=== PATIENT | male | born 1955 | race Caucasian/White ===

== ENCOUNTER → 2016-11-13 | Outpatient (CLI) | payer OTHER ==
[~2016-11-13] MED LIST: CARV3.122 PO; WLLUNK PO; [UNRECOGNIZED DRUG - OTHER] PO
--- NOTE | 2016-11-13 12:38 | DIAGNOSTIC IMAGING REPORT ---
RIGHT FOOT 3 VIEWS CLINICAL HISTORY: Right foot pain. FINDINGS: 3 weightbearing views of the right foot are obtained. No prior studies are available for comparison at the time of dictation. The skeletal structures appear osteopenic. No fracture is identified. Pes planus is noted. There is a plantar calcaneal enthesophyte. Mild degenerative spurring is seen along the dorsal aspect of the tarsal bones. Mild arthritic change is noted at the first metatarsophalangeal joint. The remaining joint spaces appear maintained. The overlying soft tissues are within normal limits. IMPRESSION: 1. No acute bony abnormality is identified in the right foot. 2. Pes planus, plantar heel spur, and mild arthritic change as above. Electronically signed by: Mark Bailey M.D. 11/13/2016 12:36 PM Dictated Date/Time: 11/13/2016 12:34 PM
--- NOTE | 2016-11-14 13:17 | CODING QUERY NO DIAGNOSIS ---
: 1955 TREATMENT RENDERED WITHOUT A DIAGNOSIS To promote full compliance with coding requirements relating to patient care, physician participation is requested in all cases of health information coder uncertainty. Please assist us with providing a diagnosis/symptom for the test(s) below: A diagnosis/symptom was not documented on your Order. A valid diagnosis/symptom is required to bill all insurances. Please remember that we are unable to code a diagnosis of rule out, probable, possible, questionable, or suspected. Tests that require a diagnosis: DOS: 11/13/16 * Foot X-Ray DIAGNOSIS: Provider Signature: Date: Thank you Noemi Muñoz Health Information Management Once completed, please kindly fax back to [phone] For questions please call [phone]
== END | disposition home or self-care (01) ==
LOC: C.RAD 10:52
PROVIDERS: ATTEND Podiatrist Foot & Ankle Surgery
DX: M72.2 Plantar fascial fibromatosis (principal); M21.41 Flat foot [pes planus] (acquired), right foot; M77.31 Calcaneal spur, right foot

== ENCOUNTER 2024-04-25 23:14 | Inpatient (IN) ==
--- OUTSIDE RECORDS SUMMARY | 2024-04-25 23:17 | External Medical Summary ---
Author Name Unknown Address Unknown Organization [id number]:LABORATORY [facility] [place] - [address] [place] [address] Laboratory Report Ordering Provider Test Date Status YONAS BERNARDO 04/06/2024 10:29:52 Final Observation Date Value Abnormality Reference (Units ) Status HbA1C 04/06/2024 10:29:52 5.3 4.0-5.6 (% ) Final The use of HbA1c to monitor glycemic status is based on normal hemoglobin and HbA composition. This test should not be used in patients with abnormal hemoglobin that affects the half life of the red blood cell or the in vivo glycation rates. Glucose, estimated average 04/06/2024 10:29:52 105 <126 (mg/dL) Final Performing Location LABORATORY [facility] - [address] [place] [address]
--- OUTSIDE RECORDS SUMMARY | 2024-04-25 23:17 | External Medical Summary ---
Author Name Unknown Address Unknown Organization [id number]:[facility] [place] [facility] [address] [facility] [place] [address] Laboratory Report Ordering Provider Test Date Status YONAS BERNARDO 04/06/2024 10:29:52 Final Observation Date Value Abnormality Reference (Units ) Status Triglyceride 04/06/2024 10:29:52 70 <=174 ( mg/dL) Final Triglyceride Reference Range s (mg/dL):
<150 Acceptable
150-174 Borderline high
175-499 High
>=500 Very high Cholesterol 04/06/2024 10:29:52 161 <200 (mg /dL) Final Total Cholesterol Reference Ranges (mg/dL):
<200 Desirable
200-239 Borderline high
>=240 High HDL 04/06/2024 10:29:52 45 >39 (mg/dL ) Final HDL Cholesterol Reference Ra nges (mg/dL):
>=60 High (Desirable)
<50 Low (Undesirable) For Females
<40 Low (Undesirable) For Males NON-HDL CHOLESTEROL 04/06/2024 10:29:52 116 <=159 (mg/dL) Final Non-HDL Cholesterol Referenc e Range (mg/dL):
<100 Target level for high risk ASCVD patient
<130 Optimal for general population
130-159 Near optimal for general population
160-189 Borderline High
190-219 High
>=220 Very High LDL, (calculated) 04/06/2024 10:29:52 102 <= 129 (mg/dL) Final LDL Cholesterol Reference Ra nges (mg/dL):
<70 Target level for high risk ASCVD patient
<100 Optimal for general population
100-129 Near optimal for general population
130-159 Borderline high
160-189 High
>=190 Very high Performing Location LABORATORY [facility] [place] - [address] [facility] [address]
--- OUTSIDE RECORDS SUMMARY | 2024-04-25 23:17 | External Medical Summary | Summary of Care ---
Author Name Unknown Organization [facility] Address [address] [facility] [address] Phone [phone] Care Team Providers Care Silver Cleaner Name Role Phone Unavailable Primary Care Provider Unavailabl e Encounter Details Date Type Department Care Team (Late st Contact Info) Description 03/16/2024 Orders Only PATIENT PORTAL DO NOT DELETE THIS DEPT USED BY [place] [id number] Allergies No known active allergiesdocumented as of this encounter (statuses as of 03/16/2024) Medications Medication Sig Dispensed Refills Start Date End Date Status Aspirin 81 MG Tablet Take 1 Tablet by mouth in the morning. 34 Tab 5 04/26/2015 Active Divalproex Sodium ER 500 MG Oral Tablet Extended Release 24 Hour (Depakote ER) Take 1 Tablet by mouth in the morning and 1 Tablet before bedtime. 06/26/2021 Active buPROPion HCl ER (SR) 100 MG Oral Tablet Extended Release 12 Hour (Wellbutrin SR) Take 1 Tablet by mouth in the morning and 1 Tablet before bedtime. 06/26/2021 Active Emergen-C Electro Mix Oral Packet Take by mouth 1 Package daily . Active Triamcinolone Acetonide 0.025 % External Cream (Aristocort)Indicatio ns:Rash and nonspecific skin eruption Apply topically to affected area 2 times a day. Till better (Rt wrist,forearm,out er arm ,rt abdomen) 30 g 06/26/2023 Active Zoster Vac Recomb Adjuvanted 50 MCG/0.5ML Intramuscular Suspension Reconstituted (Shingrix)Indications :Need for shingles vaccine Inject 0.5 mL into a large muscle now and repeat dose in 60 to 180 days 1 Each 1 06/26/2023 Active Hydrocortisone 2.5 % External CreamIndications:Rash and nonspecific skin eruption Apply topically to affected area 2 times a day. To affected area. 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 Hugo documented as of this encounter (statuses as of 03/16/2024) Resolved Problems Problem Noted Date Diagnosed Date Resolved Date ADVANCE DIRECTIVE INFORMATION 05/03/2005 05/26/2017 Overview: booklet given documented as of this encounter (statuses as of 03/16/2024) Immunizations Name Administration Dates Next Due Pneumococcal Conjugate Vacci ne, 20-valent ([id number]) 06/26/2023 Seasonal Influenza, Quadriva lent Hd (Fluzone Hd) 06/27/2023,07/24/2022 Seasonal Influenza, Split, I IV3, With Preserve, Inj 08/25/2015,09/07/2014,08/25/2012,2010,07/19/2009 TDAP (age 11 and older)(Adacel) 12/23/2008 Varicella Zoster Vaccine (Adult) 07/27/2015 documented as of this encounter Social History Tobacco Use Types Packs/Day Years Used Date Smoking Tobacco: Former Cigarettes 0 06/16/2020 - 06/16/2021 Smokeless Tobacco: Never Alcohol Use Standard Drinks/Week Comments No 0 (1 standard drink = 0.6 oz pur e alcohol) Quit in 1987 Sex and Gender Information Value Date Recorded Sex Assigned at Not on file Gender Identity Not on file Sexual Orientation Not on file Job Start Date Occupation Industry Not on file Not on file Not on file documented as of this encounter Plan of Treatment Upcoming Encounters Date Type Department Care Team (Late st Contact Info) Description 06/29/2024 11:20 AM EDT Office Visit General Internal Medicine [facility] [address] [place], [place] [address] Sunitha Carvalho MD [address] [facility] [place] [address] Scheduled Procedures Name Priority Associated Diagnoses Date/Ti me COLONOSCOPY FLEXIBLE PROXIMA L DIAGNOSTIC Recall Screening for colon cancer Health Maintenance Due Date Last Done Comments Albumin/Creatinine Ratio 1974 Cologuard 2001 Fecal Occult Blood Test 2001 Sigmoidoscopy 2001 Zoster Vaccines (2 of 3) 09/21/2015 07/27/2015 DTaP,Tdap,and Td Vaccines (2 - Td or Tdap) 12/23/2018 12/23/2008 COVID-19 Vaccine (1 - season) 2023 GFR 01/23/2024 01/22/2023, 06/28, 06/27/2021, Additional history exists Diabetes Screening 01/22/2026 01/22/2023, 0 01/22/2023, 07/24/2022, Additional history exists Lipid Panel 01/23/2028 01/22/2023, 06/28, 06/26/2020, Additional history exists Colonoscopy 05/12/2029 05/12/2019, 04/26, 02/16/2009 Colorectal Cancer Screening 05/12/2029 AAA Screening Completed 02/06/2022 Pneumococcal Vaccine: 65+ Years Completed 06/26/2023 Influenza Vaccine (FLU shot) Completed 10/2022, 07/24/2022, 08/25/2015, Additional history exists GARDASIL-HPV IMMUNIZATION SERIES Aged Out No longer eligible based on patient's age to complete this topic Hepatitis B Aged Out No longer eligi ble based on patient's age to complete this topic MENINGOCOCCAL (MENACTRA/MENVEO) Aged Out No longer eligible based on patient's age to complete this topic documented as of this encounter Medical Devices Not on filedocumented as of this encounter
--- OUTSIDE RECORDS SUMMARY | 2024-04-25 23:17 | External Medical Summary ---
Author Name Unknown Address Unknown Organization [id number]:[facility]AT[facility] - [address] [place] [address] Laboratory Report Ordering Provider Test Date Status YONAS BERNARDO 04/06/2024 10:29:52 Final Observation Date Value Abnormality Reference (Units ) Status BUN 04/06/2024 10:29:52 26 Above high normal 6-20 (mg/dL) Final Creatinine 04/06/2024 10:29:52 0.9 0.6-1.2 (mg/dL) Final Glomerular filtration rate/1.73 sq M.predicted [Volume Rate/Area] in Serum, Plasma or Blood by Creatinine-based formula (CKD-EPI) 04/06/2024 10:29:52 >90 >=60 (mL/min) Final eGFR is calculated based on the CKD-EPI 2020 equation Sodium 04/06/2024 10:29:52 139 135-146 (m mol/L) Final Potassium 04/06/2024 10:29:52 4.4 3.5-5.1 (m mol/L) Final Cl 04/06/2024 10:29:52 105 98-107 (mm ol/L) Final CO2 04/06/2024 10:29:52 25 22-32 (mmo l/L) Final Anion gap 04/06/2024 10:29:52 9 7-15 (mmol /L) Final Glucose 04/06/2024 10:29:52 91 70-120 (mg /dL) Final Albumin 04/06/2024 10:29:52 4.4 3.8-5.0 (g /dL) Final AST (Aspartate aminotransferase) 04/06/2024 10:29:52 23 10-50 (U/L) Final Alk Phos 04/06/2024 10:29:52 59 35-130 (U/ L) Final Bilirubin, Total 04/06/2024 10:29:52 0.6 <=1 .2 (mg/dL) Final Calcium 04/06/2024 10:29:52 9.4 8.4-10.2 ( mg/dL) Final Protein 04/06/2024 10:29:52 6.5 6.0-8.3 (g /dL) Final ALT (Alanine aminotransferase) 04/06/2024 10:29:52 20 10-50 (U/L) Final Performing Location [facility] [address] [place] [address]
--- OUTSIDE RECORDS SUMMARY | 2024-04-25 23:17 | External Medical Summary | Summary of Care ---
Author Name Unknown Organization [facility] Address [address] [facility] [address] Phone [phone] Care Team Providers Care Bulldozer Operator Name Role Phone Unavailable Primary Care Provider Unavailabl e Reason for Visit * Reason Comments Rash Patient states [place] a rash on his back side that it is not spreading but has a burn appearance to it. Patient feels like its scarring. It has been 4 months progressively. Patient has been using neosporin and uses it to make sure it is not infecting. Encounter Details Date Type Department Care Team (Late st Contact Info) Description 04/23/2024 9:20 AM EDT Office Visit Family Practice [facility] [place] [address] [place] [address] Sirisha Huff DO [address] [place] [address] Tinea corporis*; Dyshidrotic dermatitis Allergies No known active allergiesdocumented as of this encounter (statuses as of 04/25/2024) Medications Medication Sig Dispensed Refills Start Date End Date Status Aspirin 81 MG Tablet Take 1 Tablet by mouth in the morning. 34 Tab 5 5 Active Divalproex Sodium ER 500 MG Oral Tablet Extended Release 24 Hour (Depakote ER) Take 1 Tablet by mouth in the morning and 1 Tablet before bedtime. 1 Active buPROPion HCl ER (SR) 100 MG Oral Tablet Extended Release 12 Hour (Wellbutrin SR) Take 1 Tablet by mouth in the morning and 1 Tablet before bedtime. 1 Active Emergen-C Electro Mix Oral Packet Take by mouth 1 Package daily . Active Zoster Vac Recomb Adjuvanted 50 MCG/0.5ML Intramuscular Suspension Reconstituted (Shingrix)Indicat ions:Need for shingles vaccine Inject 0.5 mL into a large muscle now and repeat dose in 60 to 180 days 1 Each 1 3 Active Additional Information Patient not taking.Reported on 04/23/2024 Lisinopril-hydroC HLOROthiazide 20-12.5 MG Oral TabletIndications :HTN, goal below 140/90,Aortic root dilation (HCC),Ascending aorta enlargement (HCC) TAKE 1 TABLET BY MOUTH EVERY MORNING 90 Tablet 3 4 Active Fluconazole 100 MG Oral Tablet (Diflucan)Indicat ions:Tinea corporis Take 1 Tablet by mouth in the morning for 21 days. two tablets on first day, then one tablet once a day for 3 weeks.. 22 Tablet 4 05/14/20 24 Active Ketoconazole 2 % External CreamIndications: Tinea corporis Apply topically to affected area 2 times a day. Apply to buttocks for yeast 30 g 1 4 06/04/20 24 Active Triamcinolone Acetonide 0.5 % External Cream (Aristocort)Indic ations:Dyshidroti c dermatitis Apply topically to affected area 2 times a day. To affected area on hand for dishidrosis 60 g 5 4 Active Triamcinolone Acetonide 0.025 % External Cream (Aristocort)Indic ations:Rash and nonspecific skin eruption Apply topically to affected area 2 times a day. Till better (Rt wrist,forearm,o uter arm ,rt abdomen) 30 g 3 04/23/20 24 Discontinued Hydrocortisone 2.5 % External CreamIndications: Rash and nonspecific skin eruption Apply topically to affected area 2 times a day. To affected area. 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 Hugo documented as of this encounter (statuses as of 04/25/2024) Resolved Problems Problem Noted Date Diagnosed Date Resolved Date ADVANCE DIRECTIVE INFORMATION 05/03/2005 05/26/2017 Overview: booklet given documented as of this encounter (statuses as of 04/25/2024) Immunizations Name Administration Dates Next Due Pneumococcal Conjugate Vacci ne, 20-valent ([id number]) 06/26/2023 Seasonal Influenza, Quadriva lent Hd (Fluzone Hd) 06/27/2023,07/24/2022 Seasonal Influenza, Split, I IV3, With Preserve, Inj 08/25/2015,09/07/2014,08/25/2012,2010,07/19/2009 TDAP, Age 7 and older, IM (Adacel) 12/23/2008 Varicella Zoster Vaccine (Adult) 07/27/2015 documented as of this encounter Social History Tobacco Use Types Packs/Day Years Used Date Smoking Tobacco: Former Cigarettes 0 06/16/2020 - 06/16/2021 Smokeless Tobacco: Never Alcohol Use Standard Drinks/Week Comments No 0 (1 standard drink = 0.6 oz pur e alcohol) Quit in 1987 Utilities Answer Date Recorded Do you have trouble paying y our heating, water, or electric bill? (Adult - for ages 18 years and over) Not on file 04/13/2024 Is your family able to pay t he heat, water, or electric bill? (Household - for ages 0-17 years) Not on file 04/13/2024 Does your family have access to good internet? (Household - for ages 0-17 years) Not on file 04/13/2024 Social Connections Answer Date Recorded How often do you feel lonely or isolated from those around you? (Adult - for ages 18 years and over) Not on file 04/13/2024 Sex and Gender Information Value Date Recorded Sex Assigned at Not on file Gender Identity Not on file Sexual Orientation Not on file Job Start Date Occupation Industry Not on file Not on file Not on file documented as of this encounter Last Filed Vital Signs Vital Sign Reading Time Taken Comments Blood Pressure 118/82 04/23/2024 9:04 AM EDT Pulse 60 04/23/2024 9:04 AM EDT Temperature 36.1 C (97 F) 04/23/2024 9:04 AM EDT Respiratory Rate 16 04/23/2024 9:04 AM EDT Oxygen Saturation 95% 04/23/2024 9:04 AM EDT Inhaled Oxygen Concentration - - Weight 88 kg (194 lb 0.6 oz) 04/23/2024 9:04 AM EDT Height 180.2 cm (5' 10.95") 04/23/2024 9:04 AM E DT Body Mass Index 27.11 04/23/2024 9:04 AM EDT documented in this encounter Progress Notes * Sirisha Huff, DO - 04/23/2024 9:26 AM EDT Subjective: Diego Wen is a 68 year old male. Chief Complaint Patient presents with Rash Patient states having a rash on his back side that it is not spreading but has a burn appearance toit. Patient feels like its scarring. It has been 4 months progressively. Patient has been using neosporin and uses it to make sure it is not infecting. HPI: 68-year-old male reports large erythematous itchy rash on bottom that will not go away. It hasbeen 4 months and progressively worse, nothing he has tried has helped. He wonders if some of his activities may contribute for instance he swims at a community pool, inside, and uses a Spinner to dry his suit, however he rides his swim suit home on a bike. Rash is also on his right hand, itchy, thick, pink and nothing helps. PHM: Patient Active Problem List Diagnosis BIPOLAR AFFEC, DEPR-MOD Espino angioma History of atrial fibrillation Lyme carditis HTN, goal below 140/90 Aortic root dilatation (HCC) Current Outpatient Medications Medication Sig Dispense Refill Fluconazole 100 MG Oral Tablet (Diflucan) Take 1 Tablet by mouth in the morning for 21 days. two tablets on first day, then one tablet once a day for 3 weeks.. 22 Tablet 0 Ketoconazole 2 % External Cream Apply topically to affected area 2 times a day. Apply to buttocks for yeast 30 g 1 Triamcinolone Acetonide 0.5 % External Cream (Aristocort) Apply topically to affected area 2 times a day. To affected area on hand for dishidrosis 60 g 5 Lisinopril-hydroCHLOROthiazide 20-12.5 MG Oral Tablet TAKE 1 TABLET BY MOUTH EVERY MORNING 90 Tablet 3 Emergen-C Electro Mix Oral Packet Take by mouth 1 Package daily . buPROPion HCl ER (SR) 100 MG Oral Tablet Extended Release 12 Hour (Wellbutrin SR) Take 1 Tablet by mouth in the morning and 1 Tablet before bedtime. Divalproex Sodium ER 500 MG Oral Tablet Extended Release 24 Hour (Depakote ER) Take 1 Tablet by mouth in the morning and 1 Tablet before bedtime. Aspirin 81 MG Tablet Take 1 Tablet by mouth in the morning. 34 Tab 5 Zoster Vac Recomb Adjuvanted 50 MCG/0.5ML Intramuscular Suspension Reconstituted (Shingrix) Inject 0.5 mL into a large muscle now and repeat dose in 60 to 180 days (Patient not taking: Reported on 04/23/2024) 1 Each 1 No current facility-administered medications for this visit. Review of patient's allergies indicates: No Known Allergies Objective: BP 118/82 | Pulse 60 | Temp 36.1 C (97 F) (Tympanic) | Resp 16 | Ht 1.802 m (5' 10.95") | Wt 88kg (194 lb 0.6 oz) | SpO2 95% | BMI 27.11 kg/m | BSA 2.1 m Physical Exam: Skin: Thick erythematous plaque approximately 10 cm on right hand with excoriations, no scale. No induration or drainage. Bilateral buttocks with large approximately 25 cm on each side round light pink erythematous rash with raised border, Otherwise skin color, texture, turgor are normal, no rashes or significant lesions ASSESSMENT/PLAN: Discussed etiology of rashes with patient, suspect ringworm which is caused by yeast on buttocks, probably made worse by using community suit Spinner, and possibly by sitting for prolonged time in wet suit or sweaty shorts. He states he is already using dry fit kind of products. Large area of rash, will treat from inside out with oral medication as well as topical, these things may recur, strongly encouraged to shower, dry off immediately after working out or swimming, and get in to dry clothes. Rash on his hand is from a different cause, and therefore treated differently, instructions are clearly written on creams, be sure not to use the wrong cream on the wrong place as this could make it worse. Patient does admitting to washing his hands, washing dishes, and swimming frequently, discussed that dyshidrosis is caused by drying out the natural oils on his skin, recommend trying to use rubber gloves, wash hands a little less if possible, avoid contact with water, and can moisturize after short shower etc. Tinea corporis (Primary) - Fluconazole 100 MG Oral Tablet (Diflucan); Take 1 Tablet by mouth in the morning for 21 days. twotablets on first day, then one tablet once a day for 3 weeks.. - Ketoconazole 2 % External Cream; Apply topically to affected area 2 times a day. Apply to buttocks for yeast Dyshidrotic dermatitis - Triamcinolone Acetonide 0.5 % External Cream (Aristocort); Apply topically to affected area 2 times a day. To affected area on hand for dishidrosis Update via call or email in 1 month, call sooner with questions, problems 20 min spent with patient, reviewing history, performing physical exam, reviewing labs, studies, specialist OVNs, and reports, educating and coordinating care, discussing treatment and completing note Sirisha Huff DO documented in this encounter Nursing Notes * Corrine Phillip MED ASSIST - 04/23/2024 9:04 AM EDT Chief Complaint Patient presents with Rash Patient states having a rash on his back side that it is not spreading but has a burn appearance toit. Patient feels like its scarring. It has been 4 months progressively. Patient has been using neosporin and uses it to make sure it is not infecting. documented in this encounter Plan of Treatment Upcoming Encounters Date Type Department Care Team (Late st Contact Info) Description 06/29/2024 11:20 AM EDT Office Visit General Internal Medicine [facility] [address] [place] [address] Sunitha Carvalho MD [address] [facility] [place] [address] Scheduled Procedures Name Priority Associated Diagnoses Date/Ti me COLONOSCOPY FLEXIBLE PROXIMA L DIAGNOSTIC Recall Screening for colon cancer Health Maintenance Due Date Last Done Comments Albumin/Creatinine Ratio 1974 Cologuard 2001 Fecal Occult Blood Test 2001 Sigmoidoscopy 2001 Zoster Vaccines (2 of 3) 09/21/2015 07/27/2015 DTaP,Tdap,and Td Vaccines (2 - Td or Tdap) 12/23/2018 12/23/2008 COVID-19 Vaccine (1 - 24 season) 2023 GFR 04/06/2025 04/06/2024, 12/26, 07/24/2022, Additional history exists Diabetes Screening 04/06/2027 04/06/2024, 0 04/06/2024, 01/22/2023, Additional history exists Lipid Panel 04/06/2029 04/06/2024, 12/26, 07/24/2022, Additional history exists Colonoscopy 05/12/2029 05/12/2019, 04/26, [...] Not on filedocumented as of this encounter Visit Diagnoses Diagnosis Tinea corporis- Primary Dermatophytosis of the body Dyshidrotic dermatitis Dyshidrosis documented in this encounter
--- OUTSIDE RECORDS SUMMARY | 2024-04-25 23:17 | External Medical Summary ---
Author Name Unknown Address Unknown Organization K09:[facility] [place] [address] Laboratory Report Ordering Provider Test Date Status YONAS BERNARDO 04/06/2024 10:29:52 Final Observation Date Value Abnormality Reference (Units ) Status WBC, Total 04/06/2024 10:29:52 5.23 4.00-10.8 0 (K/uL) Final RBC 04/06/2024 10:29:52 4.62 4.50-5.25 (M/uL) Final Hemoglobin 04/06/2024 10:29:52 14.7 14.0-16.8 (g/dL) Final HCT 04/06/2024 10:29:52 42.5 40.0-48.4 (%) Final MCV 04/06/2024 10:29:52 92.0 82.0-99.5 (fL) Final MCH 04/06/2024 10:29:52 31.8 27.0-34.0 (pg) Final MCHC 04/06/2024 10:29:52 34.6 32.0-36.0 (g/dL) Final RDW 04/06/2024 10:29:52 12.0 11.5-15.5 (%) Final Platelets 04/06/2024 10:29:52 210 140-400 (K /uL) Final MPV 04/06/2024 10:29:52 9.8 6.6-11.1 ( fL) Final Performing Location [facility] [place] [address]
--- OUTSIDE RECORDS SUMMARY | 2024-04-25 23:17 | External Medical Summary ---
Author Name Unknown Address Unknown Organization [id number]:[facility] [place] [address] [place] [address] Laboratory Report Ordering Provider Test Date Status YONAS BERNARDO 04/06/2024 10:29:52 Final Observation Date Value Abnormality Reference (Units ) Status TSH 04/06/2024 10:29:52 2.03 0.27-4.20 (uIU/mL) Final Performing Location [facility] [place] [address] [place] [address]
--- OUTSIDE RECORDS SUMMARY | 2024-04-25 23:17 | External Medical Summary | Summary of Care ---
Author Name Unknown Organization [facility] Address [address] [address] Phone [phone] Care Team Providers Care Communications Designer Name Role Phone Unavailable Primary Care Provider Unavailabl e Reason for Visit * Reason Comments Outpatient Testing Encounter Details Date Type Department Care Team (Late st Contact Info) Description 04/06/2024 10:20 AM EDT Laboratory Laboratory [facility] [place] [address] [place] [id number] [place], [facility] [address] [facility] [place] [address] Encounter for long-term (current) use of other medications Allergies No known active allergiesdocumented as of this encounter (statuses as of 04/06/2024) Medications Medication Sig Dispensed Refills Start Date [...] as of this encounter (statuses as of 04/06/2024) Active Problems Problem Noted Date Diagnosed Date HTN, goal below 140/90 06/26/2023 Aortic root dilatation 06/26/2023 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 Hugo documented as of this encounter (statuses as of 04/06/2024) Resolved Problems Problem Noted Date Diagnosed Date Resolved Date ADVANCE DIRECTIVE INFORMATION 05/03/2005 05/26/2017 Overview: booklet given documented as of this encounter (statuses as of 04/06/2024) Immunizations Name Administration Dates Next Due Pneumococcal Conjugate Vacci ne, 20-valent ([id number]) 06/26/2023 Seasonal Influenza, Quadriva lent Hd (Fluzone [...] AM EDT Office Visit General Internal Medicine [facility] [place] [address] [place] [address] Sunitha Carvalho MD [address] [facility] [place] [address] Pending Results Name Type Priority Associated Diagnoses Date /Time COMPREHENSIVE METABOLIC PANEL Lab Routine Encounter for long-term (current) use of other medications 04/06/2024 10:29 AM EDT LIPID PANEL WITH DIRECT LDL IF TG IS HIGH Lab Routine Encounter for long-term (current) use of other medications 04/06/2024 10:29 AM EDT TSH WITH FREE T4 IF INDICATED Lab Routine Encounter for long-term (current) use of other medications 04/06/2024 10:29 AM EDT HEMOGLOBIN A1C Lab Routine Encounter for long-term (current) use of other medications 04/06/2024 10:29 AM EDT VALPROIC ACID LEVEL Lab Routine Encounter for long-term (current) use of other medications 04/06/2024 10:29 AM EDT Scheduled Procedures Name Priority Associated Diagnoses Date/Ti me COLONOSCOPY FLEXIBLE PROXIMA L DIAGNOSTIC Recall Screening for colon cancer Health Maintenance Due Date Last Done Comments Albumin/Creatinine Ratio 1974 Cologuard 2001 Fecal Occult Blood Test 2001 Sigmoidoscopy 2001 Zoster Vaccines (2 of 3) 09/21/2015 07/27/2015 DTaP,Tdap,and Td Vaccines (2 - Td or Tdap) 12/23/2018 12/23/2008 COVID-19 Vaccine ( - 2022- season) 2023 GFR 01/23/2024 01/22/2023, 06/28, 06/27/2021, [...] Not on filedocumented as of this encounter Procedures Procedure Name Priority Date/Time Associated Diagnosis Comments DIFFERENTIAL, AUTOMATED Routine 04/06/2024 10:29 AM EDT Encounter for long-term (current) use of other medications CBC Routine 04/06/2024 10:29 AM EDT Encounter for long-term (current) use of other medications CBC Routine 04/06/2024 10:29 AM EDT Encounter for long-term (current) use of other medications documented in this encounter Results * (ABNORMAL) DIFFERENTIAL, AUTOMATED (04/06/2024 10:29 AM EDT) WBC 5.23 4.00 - 10.80 K/uL 04/06/2024 10:35 AM EDT [facility]-02 Neutrophils % 53.9 40.0 - 75.0 % 04/06/2024 10:35 AM EDT [facility]-02 Lymphocytes % 30.2 18.0 - 42.0 % 04/06/2024 10:35 AM EDT [facility]-02 Monocytes % 12.6(H) 1.0 - 11.0 % 04/06/2024 10:35 AM EDT [facility]-02 Eosinophils % 3.1 0.0 - 6.0 % 04/06/2024 10:35 AM EDT [facility] 56- Basophils % 0.2 0.0 - 2.0 % 04/06/2024 10:35 AM EDT [facility] 56- Absolute Neutrophils 2.82 1.80 - 7.70 K/uL 04/06/2024 10:35 AM EDT [facility] 56- Absolute Lymphocytes 1.58 1.00 - 4.80 K/ul 04/06/2024 10:35 AM EDT [facility] 56- Absolute Monocytes 0.66 0.00 - 1.10 K/uL 04/06/2024 10:35 AM EDT [facility] 56- Absolute Eosinophils 0.16 0.00 - 0.70 K/uL 04/06/2024 10:35 AM EDT [facility] 56- Absolute Basophils 0.01 0.00 - 0.20 K/uL 04/06/2024 10:35 AM EDT [facility] 56 Blood Venous blood specimen / Unknown Venipuncture / Unknown 04/06/2024 10:29 AM EDT 04/06/2024 10:29 AM EDT Shyla Shelby PA-C LAB BLOOD ORDERABLES [facility] 56 [address] [place], [place] [id number] * CBC (04/06/2024 10:29 AM EDT) WBC 5.23 4.00 - 10.80 K/uL 04/06/2024 10:35 AM EDT [facility] 56- RBC 4.62 4.50 - 5.25 M/uL 04/06/2024 10:35 AM EDT [facility] 56 HGB 14.7 14.0 - 16.8 g/dL 04/06/2024 10:35 AM EDT [facility] 56- HCT 42.5 40.0 - 48.4 % 04/06/2024 10:35 AM EDT [facility] 56 MCV 92.0 82.0 - 99.5 fL 04/06/2024 10:35 AM EDT [facility] MCH 31.8 27.0 - 34.0 pg 04/06/2024 10:35 AM EDT [facility] 56 MCHC 34.6 32.0 - 36.0 g/dL 04/06/2024 10:35 AM EDT [facility] 56 RDW 12.0 11.5 - 15.5 % 04/06/2024 10:35 AM EDT [facility] 56 PLT 210 140 - 400 K/uL 04/06/2024 10:35 AM EDT [facility] 56 MPV 9.8 6.6 - 11.1 fL 04/06/2024 10:35 AM EDT [facility] Blood Venous blood specimen / Unknown Venipuncture / Unknown 04/06/2024 10:29 AM EDT 04/06/2024 10:29 AM EDT Shyla Shelby PA-C LAB BLOOD ORDERABLES [facility] [address] [place] [address] documented in this encounter Visit Diagnoses Diagnosis Encounter for long-term (current) use of other medications documented in this encounter
--- OUTSIDE RECORDS SUMMARY | 2024-04-25 23:17 | External Medical Summary ---
Author Name Unknown Address Unknown Organization K01:[facility] - [address] [place] [address] Laboratory Report Ordering Provider Test Date Status YONAS BERNARDO 04/06/2024 10:29:52 Final Observation Date Value Abnormality Reference (Units ) Status Valproic Acid, level 04/06/2024 10:29:52 29 Below low normal 50-100 (ug/mL) Final Performing Location [facility] - [address] [place] [address]
--- OUTSIDE RECORDS SUMMARY | 2024-04-25 23:17 | External Medical Summary ---
Author Name Unknown Address Unknown Organization K09:[facility] [place] [address] Laboratory Report Ordering Provider Test Date Status YONAS BERNARDO 04/06/2024 10:29:52 Final Observation Date Value Abnormality Reference (Units ) Status SYNC LEUKOCYTES IN BLOOD BY AUTOMATED COUNT 04/06/2024 10:29:52 5.23 4.00-10.80 (K/uL) Final Segs 04/06/2024 10:29:52 53.9 40.0-75.0 (%) Final Lymphs % 04/06/2024 10:29:52 30.2 18.0-42.0 (%) Final Monos 04/06/2024 10:29:52 12.6 Above high normal 1.0-11.0 (%) Final Eosinophils 04/06/2024 10:29:52 3.1 0.0-6.0 (%) Final Basos 04/06/2024 10:29:52 0.2 0.0-2.0 (%) Final Absolute Segs 04/06/2024 10:29:52 2.82 1.80-7.70 (K/uL) Final Lymphs, absolute 04/06/2024 10:29:52 1.58 1.00-4.80 (K/ul) Final Monos, Abs 04/06/2024 10:29:52 0.66 0.00-1.10 (K/uL) Final Eos, Abs 04/06/2024 10:29:52 0.16 0.00-0.70 (K/uL) Final Basos, Abs 04/06/2024 10:29:52 0.01 0.00-0.20 (K/uL) Final Performing Location [facility] [place] [address]
--- OUTSIDE RECORDS SUMMARY | 2024-04-25 23:18 | External Medical Summary | Summary of Care ---
Author Name Unknown Organization [facility] Address [address] [facility] [place] [address] Phone [phone] Care Team Providers Care Umbrella Supervisor Name Role Phone Unavailable Primary Care Provider Unavailabl e Reason for Visit * Reason Onset Date Comments Test Results 01/08/2024 Encounter Details Date Type Department Care Team (Late st Contact Info) Description 01/08/2024 Telephone Cardiology, [facility] [address] [place] [address] Ashwin Wooten PA-C [address] [place] [address] Test Results Allergies No known active allergiesdocumented as of this encounter (statuses as of 01/08/2024) Medications Medication Sig Dispensed Refills Start Date End Date Status Aspirin 81 MG Tablet Take 1 Tablet by mouth in the morning. 34 Tab 5 04/26/2015 Active Divalproex Sodium ER 500 MG Oral Tablet Extended Release 24 Hour (Depakote ER) Take 1 Tablet by mouth in the morning and 1 Tablet before bedtime. 0 06/26/2021 Active buPROPion HCl ER (SR) 100 MG Oral Tablet Extended Release 12 Hour (Wellbutrin SR) Take 1 Tablet by mouth in the morning and 1 Tablet before bedtime. 0 06/26/2021 Active Emergen-C Electro Mix Oral Packet Take by mouth 1 Package daily . 0 Active Lisinopril-hydroCHLOR Othiazide 20-12.5 MG Oral TabletIndications:HTN , goal below 140/90,Aortic root dilation (HCC),Ascending aorta enlargement (HCC) Take 1 Tablet by mouth in the morning. 90 Tablet 3 02/14/2023 Active Triamcinolone Acetonide 0.025 % External Cream (Aristocort)Indicatio ns:Rash and nonspecific skin eruption Apply topically to affected area 2 times a day. Till better (Rt wrist,forearm,out er arm ,rt abdomen) 30 g 0 06/26/2023 Active Zoster Vac Recomb Adjuvanted 50 MCG/0.5ML Intramuscular Suspension Reconstituted (Shingrix)Indications :Need for shingles vaccine Inject 0.5 mL into a large muscle now and repeat dose in 60 to 180 days 1 Each 1 06/26/2023 Active Hydrocortisone 2.5 % External CreamIndications:Rash and nonspecific skin eruption Apply topically to affected area 2 times a day. To affected area. 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 Hugo documented as of this encounter (statuses as of 01/08/2024) Resolved Problems Problem Noted Date Diagnosed Date Resolved Date ADVANCE DIRECTIVE INFORMATION 05/03/2005 05/26/2017 Overview: booklet given documented as of this encounter (statuses as of 01/08/2024) Immunizations Name Administration Dates Next Due Pneumococcal Conjugate Vacci ne, 20-valent ([id number]) 06/26/2023 Seasonal Influenza, Quadriva lent Hd (Fluzone Hd) 06/27/2023,07/24/2022 Seasonal Influenza, Split, I IV3, With Preserve, Inj 08/25/2015,09/07/2014,08/25/2012,2010,07/19/2009 TDAP (age 11 and older)(Adacel) 12/23/2008 Varicella Zoster Vaccine (Adult) 07/27/2015 documented as of this encounter Social History Tobacco Use Types Packs/Day Years Used Date Smoking Tobacco: Former Cigarettes 1 0 06/16/2020 - 06/16/2021 Smokeless Tobacco: Never [...] on file documented as of this encounter Miscellaneous Notes * Telephone Encounter - Saritha Arteaga CMA - 01/08/2024 1:33 PM EDT My g sent. * Telephone Encounter - Saritha Arteaga CMA - 01/08/2024 1:33 PM EDT ----- Message from Ashwin Wooten PA-C sent at 01/07/2024 3:56 PM EDT ----- January 07, 2024 TTE Interpretation Summary (as per Dr. Henao): The left ventricular cavity size is normal. The LV wall thickness is borderline increased (concentric). The left ventricular wall motion is normal. The qualitative LV ejection fraction is 60-64% (normal). Mild aortic valve sclerosis is present. There is trace mitral and tricuspid insufficiency The aortic root and proximal ascending aorta are mildly enlarged. (4.3 cm/3.9 cm). Compared to prior study of January 14, 2022, there is no significant change. Echo results are unchanged compared to prior. Recommend continued routine surveillance monitoring of the mildly enlarged aortic root and proximal ascending aorta. documented in this encounter Plan of Treatment Upcoming Encounters Date Type Department Care Team (Late st Contact Info) Description 06/29/2024 11:20 AM EDT Office Visit General Internal Medicine [facility] [address] [place] [id number] Sunitha Carvalho MD [address] [place] [address] Scheduled Procedures Name Priority Associated Diagnoses Date/Ti me COLONOSCOPY FLEXIBLE PROXIMA L DIAGNOSTIC Recall Screening for colon cancer Health Maintenance Due Date Last Done Comments Albumin/Creatinine Ratio 1974 Cologuard 2001 Fecal Occult Blood Test 2001 Sigmoidoscopy 2001 Zoster Vaccines (2 of 3) 09/21/2015 07/27/2015 Depression Screening 05/26/2018 05/26/2017 DTaP,Tdap,and Td Vaccines (2 - Td or [...]
--- OUTSIDE RECORDS SUMMARY | 2024-04-25 23:18 | External Medical Summary | Summary of Care ---
Author Name Unknown Organization [facility] Address [address] [place] [address] Phone [phone] Care Team Providers Care Watermaster Name Role Phone Unavailable Primary Care Provider Unavailabl e Reason for Referral * Precert (Within 10 days (routine)) - Pending Review Specialty Diagnoses / Procedures Referred By Contac t Referred To Contact Cardiac Studies Diagnoses HTN, goal below 140/90 Aortic root dilation (HCC) Ascending aorta enlargement (HCC) Procedures ECHO, COMPLETE (2D), TRANS-THORACIC Ashwin Wooten PA-C [address] [place] [address] Referral ID Status Reason Start Date Expiration Date Visits Requested Visits Authorized [id number] Pending Review Precert 12/18/2023 999 999 Reason for Visit * Reason Comments Follow Up Encounter Details Date Type Department Care Team (Late st Contact Info) Description 12/17/2023 1:30 PM EST Office Visit Cardiology, [facility] [address] [place] [id number] Ashwin Wooten PA-C [address] [place] [id number] Ascending aorta enlargement (HCC)*; HTN, goal below 140/90; Aortic root dilation (HCC); Bradycardia Allergies No known active allergiesdocumented as of this encounter (statuses as of 12/17/2023) Medications Medication Sig Dispensed Refills Start Date [...] as of this encounter (statuses as of 12/17/2023) Active Problems Problem Noted Date Diagnosed Date HTN, goal below 140/90 06/26/2023 Aortic root dilatation 06/26/2023 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 Hugo documented as of this encounter (statuses as of 12/17/2023) Resolved Problems Problem Noted Date Diagnosed Date Resolved Date ADVANCE DIRECTIVE INFORMATION 05/03/2005 05/26/2017 Overview: booklet given documented as of this encounter (statuses as of 12/17/2023) Immunizations Name Administration Dates Next Due Pneumococcal Conjugate Vacci ne, 20-valent ([id number]) 06/26/2023 Seasonal Influenza, Quadriva lent Hd (Fluzone [...] Sign Reading Time Taken Comments Blood Pressure 136/92 12/17/2023 1:26 PM EST Pulse 56 12/17/2023 1:26 PM EST Temperature - - Respiratory Rate 14 12/17/2023 1:26 PM EST Oxygen Saturation - - Inhaled Oxygen Concentration - - Weight 87.5 kg (193 lb) 12/17/2023 1:26 PM EST Height - - Body Mass Index 26.18 08/06/2023 11:57 AM EDT documented in this encounter Progress Notes * Ashwin Wooten PA-C - 12/17/2023 1:26 PM EST History of Present Illness: Diego Wen is a 68 year old male here today for [facility] cardiology follow-up evaluation. Feeling well. No complaints. He continues to be physically active, mainly running, without difficulty. He was not able to finish the Half Iron[employer] this summer due to cramping/dehydration. He continues to work at [employer]. No chest pain, palpitations, exertional dyspnea, positional lightheadedness/dizziness, fluid retention, syncope, excessive bruising, or bleeding issues. 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 Mother with an NC in her early 70's. Social History: Nonsmoker. No alcohol. No illegal drug use. Single. Complete Review of Systems: See above. Otherwise negative or noncontributory. Review of patient's allergies indicates: No Known Allergies Current Outpatient Medications Medication Sig Dispense Refill Aspirin 81 MG Tablet Take 1 Tablet by mouth in the morning. 34 Tab 5 Divalproex Sodium ER 500 MG Oral Tablet Extended Release 24 Hour (Depakote ER) Take 1 Tablet by mouth in the morning and 1 Tablet before bedtime. buPROPion HCl ER (SR) 100 MG Oral Tablet Extended Release 12 Hour (Wellbutrin SR) Take 1 Tablet by mouth in the morning and 1 Tablet before bedtime. Emergen-C Electro Mix Oral Packet Take by mouth 1 Package daily . Lisinopril-hydroCHLOROthiazide 20-12.5 MG Oral Tablet Take 1 Tablet by mouth in the morning. 90 Tablet 3 Triamcinolone Acetonide 0.025 % External Cream (Aristocort) Apply topically to affected area 2 times a day. Till better (Rt wrist,forearm,outer arm ,rt abdomen) 30 g 0 Zoster Vac Recomb Adjuvanted 50 MCG/0.5ML Intramuscular Suspension Reconstituted (Shingrix) Inject 0.5 mL into a large muscle now and repeat dose in 60 to 180 days 1 Each 1 Hydrocortisone 2.5 % External Cream Apply topically to affected area 2 times a day. To affected area. 30 g 0 No current facility-administered medications for this visit. OBJECTIVE/PHYSICAL EXAMINATION: BP 136/92 | Pulse 56 | Resp 14 | Wt 87.5 kg (193 lb) | BMI 26.18 kg/m | BSA 2.11 m Blood pressure on my examination was 134/88 on the left and 138/86 on the right General: A&Ox3. NAD. Skin: No rash. HENT: Normocephalic. Atraumatic. Eyes: PER. Conjunctiva pink, sclera clear. Neck: No carotid bruits. No JVD. No HJR. Heart: Regular rate and rhythm, 50 bpm. No murmur. No rub. No gallop. PMI is nondisplaced. Lungs: Clear to auscultation. Abdomen: +BS. Soft. Nontender. No masses or organomegaly. Extremities: No clubbing, cyanosis, or edema. Limited neurological examination is without focal deficits. Pulses: radial=2/4, posterior tibial=2/4. Data: September 06, 2016 TTE Interpretation Summary (as per Dr. Peraza): Normal LV chamber size with mildconcentric LVH. Normal LV systolic function without regional wall motion abnormality, EF 60-65%. Grade I diastolic dysfunction. Mild tricuspid regurgitation. Mild enlargement of the ascending aorta with slight enlargement compared to study of 04/21/14. August 03, 2018 ZEUS Interpretation Summary (as per Dr. Peraza): The stress echo is negative for inducible ischemia. No arrhythmias. Normal HR and BP response to exercise. Above average exercise tolerance. At rest, normal LV chamber size with borderline concentric LVH. Normal LV systolic function without regional wall motion abnormality, EF 60-65%. Mild tricuspid regurgitation. The aortic root and proximal ascending aorta are mildly enlarged. December 16, 2019 TTE Interpretation Summary (as per Dr. Mchugh): Study was performed with the patient in sinus bradycardia. The left ventricular cavity size is normal. The LV wall thickness is mildlyincreased (concentric). The left ventricular wall motion is normal. Calculated LV ejection Fraction= 59% (bi- plane method of discs). The left ventricular diastolic function is mildly abnormal (gradeI). The left atrium is normal sized (< 35 ml/m^2). The aortic root is mildly enlarged. The proximal ascending thoracic aorta is mildly enlarged. Compared to previous study dated 08/03/2018, dimensions of aortic root and ascending aorta are stable. January 11, 2021 ZEUS Interpretation Summary (as per Dr. Snowden): STRESS STUDY: The stress echo is negative for inducible ischemia. Exercise capacity is above average . RESTING STUDY: The LV wall thickness is mildly increased (concentric). The qualitative LV ejection fraction is 60-64% (normal). Theaortic valve has three leaflets. There is no significant aortic regurgitation. The aortic root is mildly dilated with diameter of 4.3 cm. July 17, 2022 TTE Interpretation Summary (as per Dr. Henao): There was sinus bradycardia during the examination. The left ventricular cavity size is normal. The LV wall thickness is mildly increased (concentric). The left ventricular wall motion is normal. The qualitative LV ejection fraction is 60- 64% (normal). There is no significant valvular disease. The aortic root and proximal ascendingaorta are mildly enlarged. (4.3/3.8 cm) but are unchanged from prior study of January 11, 2021 EKG on 12/17/2023: Sinus bradycardia at 50 bpm with a first degree AV block and moderate voltage criteria for LVH. When compared to prior tracings, there is no significant change. ASSESSMENT AND RECOMMENDATIONS/PLAN: Hypertension. Non pharmacologic treatment of hypertension discussed. Sodium restriction advised along with avoidance of NSAIDs. Bradycardia precludes addition of beta-simone therapy. Patient to monitor blood pressure at home and report readings to the undersigned. If additional blood pressure control is needed would add low-dose amlodipine next. Aortic root and proximal ascending aortic enlargement. Refer for resting echocardiography Lone episode of symptomatic atrial fibrillation observed in the setting of acute lyme infection, lyme carditis, Status post June 02, 2014 direct current cardioversion by Dr. Henao at [facility] without recurrent symptoms or documentation of reoccurrence. Age greater than 65, history of tobacco abuse. February 06, 2022 AAA screen showed no evidence of an abdominal aortic aneurysm. Family history of ischemic heart disease. Risk factor and lifestyle modification discussed. Ten year ASCVD risk score 16.3%. Fasting lipids ordered through PCP. Statin to be considered thereafter. Routine cardiology follow-up, or as needed. ER with emergencies. Ashwin Wooten PA-C Department of Cardiology I spent a total of 30-39 minutes (exact time 30 mins) on the date of service in preparation, delivery, and documentation of the care provided to Diego Wen excluding any time spent in the performance of separately billed services. This visit involved medical care services related to at least one serious condition or complex condition requiring ongoing care.This chart was completed in part utilizing [employer] Speech Voice Recognition Software. Grammatical errors, random word insertions, prounoun errors, and incomplete sentences are an occasional consequence of this system due to software li mitations, ambient noise, and hardware issues. Any formal questions or concerns about the content, text, or information contained within the body of this dictation should be directly addressed to theprovider for clarification. documented in this encounter Procedure Notes * Neftaly Henao MD - 12/17/2023 1:34 PM ESTAssociated Order(s): EKG REASON FOR STUDY: routine;routine CONCLUSIONS: Sinus bradycardia with 1st degree AV block Moderate voltage criteria for LVH, may be normal variant Borderline ECG When compared with ECG of 24-JUL-2022 09:27, No significant change was found Ventricular Rate: 50 Atrial Rate: 50 ID Interval: 234 QRS Duration: 100 QT/QTc: 460/419 ms P-R-T [place]: 56 : 27 : 30 degrees documented in this encounter Nursing Notes * Luisa Gan LPN - 12/17/2023 1:25 PM EST Examination Room: 2 Name: Diego Wen Date of : 1955 Reason for Visit: Follow up Problems/Concerns: Denies cardiac complaints Interim Hosp(s): denies Chest Pain/SOB: denies MyChart Discussed: decline Patient was instructed to not get up on the exam table until directed and assisted by their provider; patient is to remain seated in the chair/ wheelchair/ exam table for fall prevention and safety reasons. Patient is aware staff will assist stepping down off exam table with personnel. documented in this encounter Plan of Treatment Upcoming Encounters Date Type Department Care Team (Late st Contact Info) Description 01/07/2024 1:30 PM EDT Cardiac Studies Cardiac Studies, [facility] [address] [facility] [place] [address] 06/29/2024 11:20 AM EDT Office Visit General Internal Medicine [facility] [address] [place] [address] Sunitha Carvalho MD [address] [facility] [place] [address] Scheduled Orders Name Type Priority Associated Diagnoses Orde r Schedule ECHO, COMPLETE (2D), TRANS-THORACIC Echocardiology Routine HTN, goal below 140/90 Aortic root dilation (HCC) Ascending aorta enlargement (HCC) Expected: 12/18/2023, Expires: 12/17/2024 Scheduled Procedures Name Priority Associated Diagnoses Date/Ti [...] Procedure Name Priority Date/Time Associated Diagnosis Comments ID ECG ROUTINE ECG W/LEAST 12 LDS W/I&R Routine 12/17/2023 1:34 PM EST HTN, goal below 140/90 Aortic root dilation (HCC) Ascending aorta enlargement (HCC) Bradycardia documented in this encounter Results * EKG (12/17/2023 1:34 PM EST) 12/17/2023 1:34 PM EST Narrative Procedure Note Neftaly Henao MD - 12/17/2023 1:34 PM EST REASON FOR STUDY: routine;routine CONCLUSIONS: Sinus bradycardia with 1st degree AV block Moderate voltage criteria for LVH, may be normal variant Borderline ECG When compared with ECG of 24-JUL-2022 09:27, No significant change was found Ventricular Rate: 50 Atrial Rate: 50 ID Interval: 234 QRS Duration: 100 QT/QTc: 460/419 ms P-R-T [place]: 56 : 27 : 30 degrees Ashwin Wooten PA-C EKG [facility] CARD[facility] documented in this encounter Visit Diagnoses Diagnosis Ascending aorta enlargement (HCC)- Primary Other specified disorders of arteries and arterioles HTN, goal below 140/90 Unspecified essential hypertension Aortic root dilation (HCC) Thoracic aortic ectasia Bradycardia Other specified cardiac dysrhythmias documented in this encounter"
--- OUTSIDE RECORDS SUMMARY | 2024-04-25 23:18 | External Medical Summary | Summary of Care ---
Author Name Unknown Organization [facility] Address [address] [facility] [place] [address] Phone [phone] Care Team Providers Care Cleaning Laborer Name Role Phone Unavailable Primary Care Provider Unavailabl e Reason for Visit * Reason Comments eRx-Medication Refill Encounter Details Date Type Department Care Team (Late st Contact Info) Description 02/10/2024 Refill Cardiology, [facility] [address] [place] [address] Starla Wooten PA-C [address] [place] [address] HTN, goal below 140/90; Aortic root dilation (HCC); Ascending aorta enlargement (HCC) Allergies No known active allergiesdocumented as of this encounter (statuses as of 02/10/2024) Medications Medication Sig Dispensed Refills Start Date [...] mouth 1 Package daily . 0 Active Triamcinolone Acetonide 0.025 % External Cream (Aristocort)Indicat ions:Rash and nonspecific skin eruption Apply topically to affected area 2 times a day. Till better (Rt wrist,forearm, outer arm ,rt abdomen) 30 g 0 06/26/2023 Active Zoster Vac Recomb Adjuvanted 50 MCG/0.5ML Intramuscular Suspension Reconstituted (Shingrix)Indicatio ns:Need for shingles vaccine Inject 0.5 mL into a large muscle now and repeat dose in 60 to 180 days 1 Each 1 06/26/2023 Active Hydrocortisone 2.5 % External CreamIndications:Ra sh and nonspecific skin eruption Apply topically to affected area 2 times a day. To affected area. 30 g 0 08/06/2023 Active Lisinopril-hydroCHL OROthiazide 20-12.5 MG Oral TabletIndications:H TN, goal below 140/90,Aortic root dilation (HCC),Ascending aorta enlargement (HCC) TAKE 1 TABLET BY MOUTH EVERY MORNING 90 Tablet 3 02/10/2024 Active Lisinopril-hydroCHL OROthiazide 20-12.5 MG Oral TabletIndications:H TN, goal below 140/90,Aortic root dilation (HCC),Ascending aorta enlargement (HCC) Take 1 Tablet by mouth in the morning. 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 Hugo documented as of this encounter (statuses as of 02/10/2024) Resolved Problems Problem Noted Date Diagnosed Date Resolved Date ADVANCE DIRECTIVE INFORMATION 05/03/2005 05/26/2017 Overview: booklet given documented as of this encounter (statuses as of 02/10/2024) Immunizations Name Administration Dates Next Due Pneumococcal Conjugate Vacci ne, 20-valent ([id number]) 06/26/2023 Seasonal Influenza, Quadriva lent Hd (Fluzone [...] encounter Miscellaneous Notes * Telephone Encounter - Starla Wooten PA-C - 02/10/2024 4:11 PM EDTSigned Prescriptions: Disp Refills Lisinopril-hydroCHLOROthiazide 20-12.5 MG *90 Tab*3 Sig: TAKE 1 TABLET BY MOUTH EVERY MORNING Authorizing Provider: STARLA WOOTEN * Telephone Encounter - Wendy Sexton CMA - 02/10/2024 1:43 PM EDTPending Prescriptions: Disp Refills Lisinopril-hydroCHLOROthiazide 20-12.5 MG *90 Tab*3 Sig: TAKE 1 TABLET BY MOUTH EVERY MORNING * Telephone Encounter - Wendy Sexton CMA - 02/10/2024 1:43 PM EDT Did you pend patient's preferred pharmacy and medication before forwarding?yes Pharmacy: [id number] [address] [id number] Pending Prescriptions: Disp Refills Lisinopril-hydroCHLOROthiazide 20-12.5 MG*90 Tab*3 Sig: TAKE 1 TABLET BY MOUTH EVERY MORNING Last Visit: 12/17/2023 (in office), Visit date not found (telemedicine) Next Visit: Visit date not found If no future appointments scheduled, and last appointment is greater than a year ago, please schedule patient for a follow-up appointment Last date the medication was ordered: 02-14-2023 Is this request for a controlled substance?No Urine Drug Screen:No results found for this or any previous visit. Patient Phone Numbers Labs: Lab Results Component Value Date/Time CREAT 0.9 01/22/2023 10:57 AM CREAT 1.0 06/26/2020 09:05 AM POTASSIUM 4.7 01/22/2023 10:57 AM POTASSIUM 4.1 06/26/2020 09:05 AM TSH 1.35 01/22/2023 10:57 AM TSH 3.48 04/20/2014 11:10 AM LDLCALC 85 01/22/2023 10:57 AM LDLCALC 81 05/27/2017 08:30 AM LDLDIRECT 90 06/26/2020 09:05 AM ALT 26 01/22/2023 10:57 AM ALT 22 06/26/2020 09:05 AM HGBA1C 5.0 01/22/2023 10:57 AM documented in this encounter Plan of Treatment Upcoming Encounters Date Type Department Care Team (Late st Contact Info) Description 06/29/2024 11:20 AM EDT Office Visit General Internal Medicine [facility] [address] [place] [id number] Sunitha Carvalho MD [address] [place] [address] Scheduled Procedures Name Priority Associated Diagnoses Date/Ti me COLONOSCOPY FLEXIBLE PROXIMA L DIAGNOSTIC Recall Screening for colon cancer Health Maintenance Due Date Last Done Comments Albumin/Creatinine Ratio 1974 Cologuard 2001 Fecal Occult Blood Test 2001 Sigmoidoscopy 2001 Zoster Vaccines (2 of 3) 09/21/2015 07/27/2015 DTaP,Tdap,and Td Vaccines (2 - Td or Tdap) 12/23/2018 12/23/2008 COVID-19 Vaccine (1 - 24 season) 2023 GFR 01/23/2024 01/22/2023, 06/28, 06/27/2021, [...] as of this encounter Visit Diagnoses Diagnosis HTN, goal below 140/90 Unspecified essential hypertension Aortic root dilation (HCC) Thoracic aortic ectasia Ascending aorta enlargement (HCC) Other specified disorders of arteries and arterioles documented in this encounter
[2024-04-25 23:50] LABS: Basophils # (auto) 0.06 K/uL (0.00-0.20); Basophils % (auto) 0.6 %; Eosinophils # (auto) 0.13 K/uL (0.00-0.50); Eosinophils % (auto) 1.2 %; Hemoglobin 15.2 g/dl (14.0-18.0); Immature Granulocytes # (auto) 0.05 K/uL (0.01-0.20); Immature Granulocytes % (auto) 0.5 %; Lymphocytes # (auto) 2.23 K/uL (1.20-3.40); Lymphocytes % (auto) 20.8 %; Mean Corpuscular Hgb Conc 36.2 g/dL (32.0-36.0); Mean Corpuscular Volume 88.4 fL (80.0-100.0); Mean Platelet Volume 9.9 fL (9.4-12.4); Monocytes # (auto) 1.05 K/uL (0.11-0.59); Monocytes % (auto) 9.8 %; Neutrophils % (auto) 67.1 %; Platelet Count 230 K/uL (130-400); RDW Coefficient of Variation 11.9 % (11.5-14.5); RDW Standard Deviation 38.2 fL (36.4-46.3); Red Blood Count 4.75 M/uL (4.70-6.10); White Blood Count 10.72 K/ul (4.8-10.8)
[2024-04-26 00:05] LABS: Albumin Globulin Ratio 1.6 (0.9-2); Albumin Level 4.4 gm/dl (3.4-5.0); BUN Creatinine Ratio 24.3 (10-20); Bilirubin,Total 0.5 mg/dl (0.2-1.0); Calcium 9.6 mg/dl (8.6-10.3); Creatinine Clr Calc Pharmacy 56.1 ml/min; Est GFR (Non-African American) 53.5 ml/min; Globulin 2.8 gm/dl (2.5-4.0); Magnesium 2.1 mg/dl (1.7-2.4); Potassium 4.1 mmol/L (3.5-5.1); Total Protein 7.2 gm/dl (6.0-8.3)
[2024-04-26 00:21] LABS: Thyroid Stimulating Hormone 3.598 uIu/ml (0.300-4.500)
[2024-04-26 00:25] LABS: Troponin I High Sensitivity 58.9 pg/ml (0-20)
[2024-04-26] MEDS: METOPROLOL TARTRATE 1 MG/ML VIAL IV STA (00:56)
--- NOTE | 2024-04-26 01:19 | Emergency Department Note ---
Impression & Plan Rapid atrial fibrillation ED Provider Note NAME: NICKOLAS MENESES AGE: 68 SEX: M : 1955 ARRIVES VIA: Walk-In INFORMANT: Patient, ED PROVIDER(S): Deanna Main MD CHIEF COMPLAINT: Irregular heartbeat HPI: This is a 68-year-old male with history of previous A-fib presenting for palpitations. Patient states he was working out and afterwards he noted his heart was in an irregular rhythm. He noted his heart felt like it was palpating of the chest. No chest pain associated, no shortness of breath. Patient notes he he did have A-fib previously but converted back into sinus rhythm. He notes this episode started around 7 to 8 PM, a few hours ago. Currently not on anticoagulation. ROS: See above HPI for pertinent positives & negatives. A total of 10 systems reviewed and were otherwise negative. PHYSICAL EXAMINATION: General: resting comfortably in no acute distress Head: Normocephalic and atraumatic Eyes: Normal inspection, extraocular muscles intact Ear, nose, throat: Normal external exam Neck: Normal range of motion Respiratory: lungs clear to auscultation bilaterally Cardiovascular: Irregularly irregular rate/rhythm, no murmur GI: soft, nontender, no guarding or rebound Extremities: nontender, moves all extremities Neuro: The patient awake and alert, appropriately conversive, no focal deficits, symmetric faces Skin: Warm, dry, and intact MEDICAL DECISION MAKING: This is a 68-year-old male presenting for palpitations. Patient is currently in A-fib with RVR with rates between 105 and 130. Discussed options occluding electrical cardioversion due to patient being within the window 48 hours. He declines and wants to do medical management. Will do metoprolol, 5 mg IV. -After metoprolol, 5 IV, patient is now A-fib with rate control. -His lab work is revealing of a elevated troponin into the 50s. -Due to troponin admission, will admit for further workup including possible ACS due to A-fib Differential diagnosis: A-fib with RVR, ACS, PE ER treatment provided: See below Diagnostics interpreted by me: ECG: ECG independently interpreted by me with atrial fibrillation, rate of 90, normal WI, normal QRS, normal QTc, no ST segment elevations consistent with STEMI criteria Cardiac Monitoring: An order was placed for continuous cardiac monitoring. The monitor shows a rate of 115 with atrial fibrillation rhythm. Laboratory studies: As stated above and show below. Imaging studies: See below. Past Med/Surg History Problem List (Updated 04/26/24 @ 06:24 by Deanna Main MD) Rapid atrial fibrillation (Acute) Enlarged heart Afib (Acute 04/22/14) Ear pain (Acute) Afib (Acute) Medication refill (Acute) Medication refill (Acute) Medical History (Updated 04/26/24 @ 06:24 by Deanna Main MD) Anxiety UTI (urinary tract infection) Ear pain Family History Mother Hypertension Family/Other No problems noted. Father Hypertension Social History Smoking Status: Never smoker Second Hand Exposure: No; Do You Dip or Chew Tobacco: No; Hx Alcohol Use: Yes (sober 30+ years) Hx Substance Use: No Preferred Language: Armenian Communication Ability: Effective Furniture Dipper Required: No Beliefs That Will Affect Care: None Current Living Situation: Alone Other Information That Helps Us Care for You: No Feels Safe at Home: Yes Safety Concerns: Feels Safe At This Time Allergies Allergies Allergy/AdvReac Type Severity Reaction Status Date / Time No Known Allergies Allergy Verified 04/26/24 00:12 Home Meds Home Medications Medication Instructions Recorded Confirmed aspirin 81 mg tablet,delayed 81 mg PO QAM 10/23/19 04/26/24 release bupropion HCl 100 mg tablet,12 hr 100 mg PO QAM 10/23/19 04/26/24 sustained-release divalproex 500 mg tablet,extended 500 mg PO QAM 10/23/19 04/26/24 release 24 hr [id number] 333 mg-133 1 tab PO QAM 04/26/24 04/26/24 mg-5 mg tablet ketoconazole 2 % topical cream 1 applic topical BID PRN Skin 04/26/24 04/26/24 Irritation lisinopril 20 1 tab PO QAM 04/26/24 04/26/24 mg-hydrochlorothiazide 12.5 mg tablet triamcinolone acetonide 0.5 % 1 applic topical DIRECTED PRN 04/26/24 04/26/24 topical cream Skin Irritation Results & Data (ED) Vital Signs Vital Signs - 24 hr 04/25/24 23:19 04/25/24 23:26 04/26/24 00:00 Temperature 36.6 C Temperature Source Temporal Artery Scan Pulse Rate 112 H 130 H 97 H Pulse Rate from SpO2 Sensor 97 H Respiratory Rate 20 23 Respiratory Effort / Characteristics Non-Labored Spontaneous Respiratory Depth Normal Blood Pressure 173/124 H Blood Pressure Mean 140 Pulse Oximetry 99 97 Oxygen Delivery Method Room Air Sepsis Recent Fever Within 48 Hours No Sepsis New/Unexplained Change in Mental Status N/A Sepsis Action Taken by Nursing No Action Required 04/26/24 00:36 04/26/24 00:56 04/26/24 00:57 Temperature Temperature Source Pulse Rate 94 H 114 H 106 H Pulse Rate from SpO2 Sensor 95 H 96 H Respiratory Rate 17 17 Respiratory Effort / Characteristics Respiratory Depth Blood Pressure 131/82 131/82 Blood Pressure Mean 98 Pulse Oximetry 96 96 Oxygen Delivery Method Sepsis Recent Fever Within 48 Hours Sepsis New/Unexplained Change in Mental Status Sepsis Action Taken by Nursing 04/26/24 01:00 04/26/24 01:00 04/26/24 01:03 Temperature Temperature Source Pulse Rate 71 Pulse Rate from SpO2 Sensor 76 Respiratory Rate 15 Respiratory Effort / Characteristics Respiratory Depth Blood Pressure 127/92 127/92 Blood Pressure Mean 110 110 Pulse Oximetry 95 Oxygen Delivery Method Sepsis Recent Fever Within 48 Hours Sepsis New/Unexplained Change in Mental Status Sepsis Action Taken by Nursing 04/26/24 01:30 04/26/24 01:33 04/26/24 02:03 Temperature Temperature Source Pulse Rate 69 72 87 Pulse Rate from SpO2 Sensor 75 80 Respiratory Rate 19 18 Respiratory Effort / Characteristics Respiratory Depth Blood Pressure 108/78 122/79 Blood Pressure Mean 88 93 Pulse Oximetry 97 97 Oxygen Delivery Method Sepsis Recent Fever Within 48 Hours Sepsis New/Unexplained Change in Mental Status Sepsis Action Taken by Nursing Laboratory Data 04/25/24 23:34 04/25/24 23:34 Lab Results 04/25/24 04/26/24 Range/Units 23:34 01:23 WBC 10.72 (4.8-10.8) K/ul RBC 4.75 (4.70-6.10) M/uL Hgb 15.2 (14.0-18.0) g/dl Hct 42.0 (42.0-52.0) % MCV 88.4 (80.0-100.0) fL MCH 32.0 (25.0-34.0) pg MCHC 36.2 H (32.0-36.0) g/dL RDW Std Deviation 38.2 (36.4-46.3) fL RDW Coeff of Sarah 11.9 (11.5-14.5) % Plt Count 230 (130-400) K/uL MPV 9.9 (9.4-12.4) fL Immature Gran % (Auto) 0.5 % Neut % (Auto) 67.1 % Lymph % (Auto) 20.8 % [place] % (Auto) 9.8 % Eos % (Auto) 1.2 % Baso % (Auto) 0.6 % Neut # (Auto) 7.20 H (1.40-6.50) K/uL Lymph # (Auto) 2.23 (1.20-3.40) K/uL [place] # (Auto) 1.05 H (0.11-0.59) K/uL Eos # (Auto) 0.13 (0.00-0.50) K/uL Baso # (Auto) 0.06 (0.00-0.20) K/uL Immature Gran # (Auto) 0.05 (0.01-0.20) K/uL PT 10.5 (9.0-12.0) Seconds INR 1.0 (0.9-1.1) APTT 26 (21-31) Seconds PTT Ratio 1.0 Sodium 137 (136-145) mmol/L Potassium 4.1 (3.5-5.1) mmol/L Chloride 104 (98-107) mmol/L Carbon Dioxide 27 (21-32) mmol/L Anion Gap 6 (3-11) BUN 33 H (6-23) mg/dl Creatinine 1.36 (0.6-1.4) mg/dl Est Cr Clr Drug Dosing 56.1 ml/min Est GFR ( Amer) 62.0 ml/min Est GFR (Non-Af Amer) 53.5 ml/min BUN/Creatinine Ratio 24.3 H (10-20) Glucose 121 H (70-99(Fasting)) mg/dl Calcium 9.6 (8.6-10.3) mg/dl Magnesium 2.1 (1.7-2.4) mg/dl Total Bilirubin 0.5 (0.2-1.0) mg/dl AST 28 (13-39) U/L ALT 23 (7-52) U/L Alkaline Phosphatase 57 (34-104) U/L Troponin I High Sens 58.9 H* 64.4 H* (0-20) pg/ml Total Protein 7.2 (6.0-8.3) gm/dl Albumin 4.4 (3.4-5.0) gm/dl Globulin 2.8 (2.5-4.0) gm/dl Albumin/Globulin Ratio 1.6 (0.9-2) TSH 3.598 (0.300-4.500) uIu/ml Administered Medications Heparin Sodium/Dextrose (Heparin Sodium/Dextrose) 25,000 units in 500 mls @ 29 mls/hr IV .[id number] [facility]; Protocol Stop: 05/26/24 03:53 Last Admin: 04/26/24 04:58 Dose: 1,450 units/hr, 29 mls/hr Documented By: ALEE Co-signed By: DM Discontinued Medications Heparin Sodium/Dextrose (Heparin Iv Adult Wt-Based Standard *No* Initial Bolus Protocol) 1 each IV ONE STA; Protocol Stop: 04/26/24 03:55 Last Admin: 04/26/24 04:24 Dose: Not Given Documented By: ALEE Metoprolol Tartrate (Metoprolol Tartrate 1 Mg/Ml Vial) 5 mg IV NOW STA Stop: 04/26/24 00:39 Last Admin: 04/26/24 00:56 Dose: 5 mg Documented By: Discharge Plan Visit Data Chief Complaint: Arrhythmia/Palpitations Stated Complaint: A FIB ED Provider: Deanna Main Discharge Problem: Rapid atrial fibrillation Patient Disposition: Admitted As Inpatient Discharge Instructions Interventions: ED Discharge Assessment Last Done: 04/26/24 03:42
--- NOTE | 2024-04-26 02:48 | History & Physical Report ---
Date of Service April 26, 2024 Assessment & Plan (1) Rapid atrial fibrillation: Plan: 68-year-old male with past medical history significant for aortic root dilatation, Lyme carditis, hypertension, bipolar depression, history of atrial fibrillation presents with rapid A-fib. Patient has history of lone episode with symptomatic atrial fibrillation in the setting of acute Lyme infection and Lyme carditis in June 02, 2014 and was s/p direct cardioversion at that time and patient states he did fine since then . Patient workouts regularly. Today after biking and running he noticed heart palpitation. And came to the ER he was found to be rapid A-fib. After IV Lopressor heart rates improved but still in A-fib. Patient denies any dizziness. No headache. No runny nose or sore throat. No cough. No fevers. No chest pain or shortness of breath. States he felt anxious. No nausea no abdominal pain. Normal bowel and bladder movements. Denies any blood in the stools ,denies any hematuria. Ambulating okay. Denies any tick bite but says not sure and last time he found that he had lyme disease after he became sick. Rapid atrial fibrillation seems asymptomatic had episode of lone A-fib in the past in 2013 in setting of Lyme carditis and was s/p cardioversion at that time. Heart rates improved after 1 dose of IV Lopressor. Will continue IV Lopressor as needed. IV heparin. Telemetry. Echo. Cardiology consult in a.m. for further recommendations. Mild elevation of troponin. Mostly demand ischemia from rapid A-fib. Will follow serial enzymes and echo. history of hypertension. Continue home lisinopril/hydrochlorothiazide. Will monitor. aortic root dilatation follow echo. Bipolar depression continue home medications DVT prophylaxis IV heparin disposition telemetry full code. History of Present Illness Chief Complaint: Rapid A-fib Primary Care Provider: Abdullahi Chand DO 68-year-old male with past medical history significant for aortic root dilatation, Lyme carditis, hypertension, bipolar depression, history of atrial f ibrillation presents with rapid A-fib. Patient has history of lone episode with symptomatic atrial fibrillation in the setting of acute Lyme infection and Lyme carditis in June 02, 2014 and was s/p direct cardioversion at that time and patient states he did fine since then . Patient workouts regularly. Today after biking and running he noticed heart palpitation. And came to the ER he was found to be rapid A-fib. After IV Lopressor heart rates improved but still in A-fib. Patient denies any dizziness. No headache. No runny nose or sore throat. No cough. No fevers. No chest pain or shortness of breath. States he felt anxious. No nausea no abdominal pain. Normal bowel and bladder movements. Denies any blood in the stools ,denies any hematuria. Ambulating okay. Denies any tick bite but says not sure and last time he found that he had lyme disease after he became sick. Past medical history. As mentioned above. Past surgical history. Colonoscopy. Social history. Former smoker. Quit alcohol 1987. No drug use. family history. Mother had RI at age of 70. Father had hypertension. Allergies Allergy/AdvReac Type Severity Reaction Status Date / Time No Known Allergies Allergy Verified 04/26/24 00:12 Home Medications Medication Instructions Recorded Confirmed Type aspirin 81 mg tablet,delayed 81 mg PO QAM 10/23/19 04/26/24 History release bupropion HCl 100 mg tablet,12 hr 100 mg PO QAM 10/23/19 04/26/24 History sustained-release divalproex 500 mg tablet,extended 500 mg PO QAM 10/23/19 04/26/24 History release 24 hr [id number] 333 mg-133 1 tab PO QAM 04/26/24 04/26/24 History mg-5 mg tablet ketoconazole 2 % topical cream 1 applic topical BID PRN Skin 04/26/24 04/26/24 History Irritation lisinopril 20 1 tab PO QAM 04/26/24 04/26/24 History mg-hydrochlorothiazide 12.5 mg tablet triamcinolone acetonide 0.5 % 1 applic topical DIRECTED PRN 04/26/24 04/26/24 History topical cream Skin Irritation Past Med/Surg History Problem List (Updated 04/26/24 @ 06:24 by Deanna Main MD) Rapid atrial fibrillation (Acute) Enlarged heart Afib (Acute 04/22/14) Ear pain (Acute) Afib (Acute) Medication refill (Acute) Medication refill (Acute) Medical History (Updated 04/26/24 @ 06:24 by Deanna Main MD) Anxiety UTI (urinary tract infection) Ear pain Family History Mother Hypertension Family/Other No problems noted. Father Hypertension Social History Smoking Status: Never smoker Second Hand Exposure: No; Do You Dip or Chew Tobacco: No; Hx Alcohol Use: Yes (sober 30+ years) Hx Substance Use: No Preferred Language: Armenian Communication Ability: Effective Composite Mechanic Required: No Beliefs That Will Affect Care: None Current Living Situation: Alone Other Information That Helps Us Care for You: No Feels Safe at Home: Yes Safety Concerns: Feels Safe At This Time Review of Systems Review of Systems: All systems reviewed & are unremarkable except as noted in HPI & below Physical Exam Physical Exam: General- Not in distress. Head- atraumatic Eyes- PERRL. ENT- oropharynx clear Neck- supple, no JVD. Lungs- clear to auscultation no wheezing or crackles. Heart- irregular rhythm; no murmur, no gallop. Abdomen- normal bowel sounds, soft, nontender, no distension. Extremities- no pretibial edema, no erythema seen Neuro- alert, oriented PERRL no facial palsy; no dysarthria; moves extremities. Results & Data Results & Data Vital Signs (Past 12 Hours) Vital Signs Temp Pulse Resp BP Pulse Ox O2 Del Method 04/26/24 01:30 69 04/26/24 01:03 71 15 95 04/26/24 01:00 127/92 04/26/24 01:00 127/92 04/26/24 00:57 106 H 17 96 04/26/24 00:56 114 H 131/82 04/26/24 00:36 94 H 17 131/82 96 04/26/24 00:00 97 H 23 97 04/25/24 23:26 130 H 04/25/24 23:19 36.6 C 112 H 20 173/124 H 99 Room Air Diagnostic Findings Laboratory Results WBC 10.72 K/ul (4.8-10.8) 04/25/24 23:34 RBC 4.75 M/uL (4.70-6.10) 04/25/24 23:34 Hgb 15.2 g/dl (14.0-18.0) 04/25/24 23:34 Hct 42.0 % (42.0-52.0) 04/25/24 23:34 MCV 88.4 fL (80.0-100.0) 04/25/24 23:34 MCH 32.0 pg (25.0-34.0) 04/25/24 23:34 MCHC 36.2 g/dL (32.0-36.0) H 04/25/24 23:34 RDW Std Deviation 38.2 fL (36.4-46.3) 04/25/24 23:34 RDW Coeff of Sarah 11.9 % (11.5-14.5) 04/25/24 23:34 Plt Count 230 K/uL (130-400) 04/25/24 23:34 MPV 9.9 fL (9.4-12.4) 04/25/24 23:34 Immature Gran % (Auto) 0.5 % 04/25/24 23:34 Neut % (Auto) 67.1 % 04/25/24 23:34 Lymph % (Auto) 20.8 % 04/25/24 23:34 [place] % (Auto) 9.8 % 04/25/24 23:34 Eos % (Auto) 1.2 % 04/25/24 23:34 Baso % (Auto) 0.6 % 04/25/24 23:34 Neut # (Auto) 7.20 K/uL (1.40-6.50) H 04/25/24 23:34 Lymph # (Auto) 2.23 K/uL (1.20-3.40) 04/25/24 23:34 [place] # (Auto) 1.05 K/uL (0.11-0.59) H 04/25/24 23:34 Eos # (Auto) 0.13 K/uL (0.00-0.50) 04/25/24 23:34 Baso # (Auto) 0.06 K/uL (0.00-0.20) 04/25/24 23:34 Immature Gran # (Auto) 0.05 K/uL (0.01-0.20) 04/25/24 23:34 Sodium 137 mmol/L (136-145) 04/25/24 23:34 Potassium 4.1 mmol/L (3.5-5.1) 04/25/24 23:34 Chloride 104 mmol/L (98-107) 04/25/24 23:34 Carbon Dioxide 27 mmol/L (21-32) 04/25/24 23:34 Anion Gap 6 (3-11) 04/25/24 23:34 BUN 33 mg/dl (6-23) H 04/25/24 23:34 Creatinine 1.36 mg/dl (0.6-1.4) 04/25/24 23:34 Est Cr Clr Drug Dosing 56.1 ml/min 04/25/24 23:34 Est GFR ( Amer) 62.0 ml/min 04/25/24 23:34 Est GFR (Non-Af Amer) 53.5 ml/min 04/25/24 23:34 BUN/Creatinine Ratio 24.3 (10-20) H 04/25/24 23:34 Glucose 121 mg/dl (70-99(Fasting)) H 04/25/24 23:34 Calcium 9.6 mg/dl (8.6-10.3) 04/25/24 23:34 Magnesium 2.1 mg/dl (1.7-2.4) 04/25/24 23:34 Total Bilirubin 0.5 mg/dl (0.2-1.0) 04/25/24 23:34 AST 28 U/L (13-39) 04/25/24 23:34 ALT 23 U/L (7-52) 04/25/24 23:34 Alkaline Phosphatase 57 U/L (34-104) 04/25/24 23:34 Troponin I High Sens 64.4 pg/ml (0-20) H* 04/26/24 01:23 Total Protein 7.2 gm/dl (6.0-8.3) 04/25/24 23:34 Albumin 4.4 gm/dl (3.4-5.0) 04/25/24 23:34 Globulin 2.8 gm/dl (2.5-4.0) 04/25/24 23:34 Albumin/Globulin Ratio 1.6 (0.9-2) 04/25/24 23:34 TSH 3.598 uIu/ml (0.300-4.500) 04/25/24 23:34 ECG Additional Comments: ECG. Atrial fibrillation with rapid ventricular response rate of 112. Minimal voltage cardia for LVH. Nonspecific ST anterior abnormality. ST depression in anterolateral leads. QTc 458. Code Status & VTE Plan VTE Prophylaxis Plan VTE Prophylaxis will be ordered: Yes
[2024-04-26] MEDS ORDERED: NITROGLYCERIN SL 0.4 MG/TAB TAB SL PRN (03:54)
[2024-04-26] MEDS ORDERED: ACETAMINOPHEN 325 MG TAB PO PRN (03:54)
[2024-04-26] MEDS ORDERED: POLYETHYLENE (MIRALAX) 17 GM PACK PO PRN (03:54)
[2024-04-26] MEDS ORDERED: TRIAMCINOLONE ACET 0.5% CR 15 GM TUBE TOP PRN (03:54)
[2024-04-26] MEDS: Heparin IV Adult Wt-Based Standard *NO* INITIAL Bolus Protocol IV STA (04:24)
[2024-04-26 04:44] LABS: Partial Thromboplastin Time 26 Seconds (21-31); Prothrombin Time 10.5 Seconds (9.0-12.0)
[2024-04-26] MEDS: HEPARIN SODIUM/DEXTROSE 25,000 UNITS/500 ML BAG IV SCH (04:58)
[2024-04-26 07:15] LABS: Basophils # (auto) 0.04 K/uL (0.00-0.20); Basophils % (auto) 0.6 %; Eosinophils # (auto) 0.14 K/uL (0.00-0.50); Hematocrit (blood only) 42.4 % (42.0-52.0); Hemoglobin 15.1 g/dl (14.0-18.0); Immature Granulocytes # (auto) 0.03 K/uL (0.01-0.20); Immature Granulocytes % (auto) 0.4 %; Lymphocytes # (auto) 2.05 K/uL (1.20-3.40); Mean Corpuscular Hemoglobin 31.5 pg (25.0-34.0); Mean Corpuscular Hgb Conc 35.6 g/dL (32.0-36.0); Mean Corpuscular Volume 88.5 fL (80.0-100.0); Monocytes # (auto) 0.75 K/uL (0.11-0.59); Neutrophils # (auto) 3.83 K/uL (1.40-6.50); Platelet Count 235 K/uL (130-400); RDW Coefficient of Variation 11.8 % (11.5-14.5); Red Blood Count 4.79 M/uL (4.70-6.10); White Blood Count 6.84 K/ul (4.8-10.8)
[2024-04-26 07:51] LABS: BUN Creatinine Ratio 28.4 (10-20); Calcium 8.8 mg/dl (8.6-10.3); Creatinine Clr Calc Pharmacy 81.6 ml/min; Est GFR (African American) 95.6 ml/min; Est GFR (Non-African American) 82.5 ml/min; Magnesium 1.9 mg/dl (1.7-2.4); Potassium 3.8 mmol/L (3.5-5.1)
[2024-04-26 07:58] LABS: Troponin I High Sensitivity 53.2 pg/ml (0-20)
[2024-04-26] MEDS: LISINOPRIL/HCTZ 20/12.5MG 1 TAB TAB PO SCH (08:19)
[2024-04-26] MEDS: DIVALPROEX EXTENDED RELEASE 500 MG TAB PO SCH (08:19)
[2024-04-26] MEDS: buPROPion SR 100 MG TABCR PO SCH (08:20)
[2024-04-26] MEDS: ASPIRIN 81 MG ECTAB PO SCH (08:20)
--- NOTE | 2024-04-26 09:06 | Cardiology Consultation ---
Date of Consultation April 26, 2024 Assessment & Plan (1) Rapid atrial fibrillation: (2) Hypertension: (3) Aortic root dilatation: (4) Family history of ischemic heart disease: Plan Presentation on April 25, 2024 with recurrent, symptomatic, atrial fibrillation with a rapid ventricular response. [id number] Score 2 points Options of management discussed. RECOMMENDATIONS/PLAN: 1. Await resting echocardiography 2. Discontinue aspirin 81 mg/day 3. Initiate anticoagulation with warfarin noting chronic use of Depakote 4. Add low-dose beta-simone therapy for rate control with metoprolol succinate 12.5 mg once a day 5. Plan for direct-current cardioversion in 4 weeks unless spontaneous conversion occurs in the interim 6. Avoid antiarrhythmic therapy given present use of fluconazole, chronic use of Depakote I spent a total of 53 minutes on the date of service in preparation, delivery, and documentation of the care provided to this patient excluding any time spent in the performance of separately billed services. This visit was a split-shared visit with the substantive portion of the medical decision making performed by the supervising automotive warranty administrator/billing provider. Please refer to Dr. Merlos's documentation. Supervising Physician Co-Signing Physician Notes I have personally performed a history and physical examination on the patient. I have reviewed the advance practitioner's documentation, and I agree with, and take responsibility for the plan of care. 68-year-old male admitted with paroxysmal atrial fibrillation. Fair rate control on telemetry. CHADS2 vascular equals 2. Echocardiogram demonstrates preserved LV systolic function with normal left atrial size. No significant valvular pathology. Initiate low-dose beta-simone therapy and oral anticoagulation with warfarin. Plan external direct-current cardioversion approximately 4 weeks. I spent a total of 25 minutes on the date of service in preparation, delivery, and documentation of the care provided to this patient, excluding any time spent in the performance of separately billed services. History of Present Illness Reason for Consultation: Atrial fibrillation with a rapid ventricular response Requesting Physician: Dr. Forte Attending Physician: Dr. Carvajal History of Present Illness Diego Wen is a 68-year-old male who presented to the [facility] emergency room in the evening of April 25, 2024, evaluation of palpitations. The patient notes watching the half [employer] race through [place] in [facility] is then working out. He describes biking 38 miles then going for short run, 1.5 miles which he completed without difficulty. When when he came home he had the onset of tachypalpitations. He states "I knew it was out. My heart rate was up. It was double pounding." Initial EKG in the ER revealed atrial fibrillation with a rapid ventricular response (112 bpm) with voltage criteria for LVH, nonspecific STT wave abnormality. QTc 458 ms. In the ER patient was given 5 mg of IV Lopressor with achievement of rate control. IV heparin was initiated on admission. Continuous telemetry monitoring reveals atrial fibrillation throughout, with a controlled ventricular response. Resting echocardiography has been completed though is pending interpretation. Chest x- ray showed no acute cardiopulmonary abnormality. Laboratory work suggested mild volume depletion. Potassium was normal at 4.1. Magnesium was normal at 2.1. TSH was normal at 3.598. High-sensitivity troponin minimally elevated as follows: 58.9 -> 64.4 -> 53.2 pg/mL. Blood pressure elevated on initial presentation (173/124), thereafter well controlled with systolic readings ranging from a low of 108 to a high of 155. Patient recently evaluated by family medicine due to a rash on his backside which was felt to represent tinea corporis. Patient prescribed fluconazole x 21 days and ketoconazole cream as well as triamcinolone cream for in dyshidrosis Patient has been active to his level preference without exertional cardiopulmonary symptoms. He denies activity related chest pain. No new or worsening shortness of breath. No change in exercise tolerance. Past Medical and Surgical History: Episode of symptomatic atrial fibrillation observed in the setting of acute lyme infection, lyme carditis, status post June 02, 2014 direct current cardioversion by Dr. Henao at [facility]. Hypertension. Aortic root and proximal ascending aortic dilatation History of tobacco abuse. February 06, 2022 AAA screen showed no evidence of an abdominal aortic aneurysm. Family history of ischemic heart disease. Bipolar disorder Family History: Father with hypertension. Mother with an IN at 70 Social History: Nonsmoker. No significant alcohol. Denies illegal drug use. Single. Enjoys biking, running, swimming. Complete Review of Systems is as stated above, negative, or noncontributory Allergies Allergy/AdvReac Type Severity Reaction Status Date / Time No Known Allergies Allergy Verified 04/26/24 00:12 Home Medications Medication Instructions Recorded Confirmed Type aspirin 81 mg tablet,delayed 81 mg PO QAM 10/23/19 04/26/24 History release bupropion HCl 100 mg tablet,12 hr 100 mg PO QAM 10/23/19 04/26/24 History sustained-release divalproex 500 mg tablet,extended 500 mg PO QAM 10/23/19 04/26/24 History release 24 hr [id number] 333 mg-133 1 tab PO QAM 04/26/24 04/26/24 History mg-5 mg tablet ketoconazole 2 % topical cream 1 applic topical BID PRN Skin 04/26/24 04/26/24 History Irritation lisinopril 20 1 tab PO QAM 04/26/24 04/26/24 History mg-hydrochlorothiazide 12.5 mg tablet triamcinolone acetonide 0.5 % 1 applic topical DIRECTED PRN 04/26/24 04/26/24 History topical cream Skin Irritation Patient History Medical History Anxiety UTI (urinary tract infection) Ear pain Family History Mother Hypertension Family/Other No problems noted. Father Hypertension Social History Smoking Status: Never smoker Second Hand Exposure: No; Do You Dip or Chew Tobacco: No; Hx Alcohol Use: Yes (sober 30+ years) Hx Substance Use: No Preferred Language: Macedonian Communication Ability: Effective Skewer Up Required: No Beliefs That Will Affect Care: None Current Living Situation: Alone Other Information That Helps Us Care for You: No Feels Safe at Home: Yes Safety Concerns: Feels Safe At This Time Review of Systems Review of Systems: Complete Review of Systems is as stated above, negative, or noncontributory. Physical Exam Physical Exam: General: A&Ox3. NAD. HENT: Normocephalic. Atraumatic. Eyes: PER. Conjunctiva pink, sclera clear. Neck: No carotid bruits. No JVD. No HJR. Heart: Irregularly irregular at 70 bpm. No murmur. No rub. No gallop. PMI is nondisplaced. Lungs: Clear to auscultation. Abdomen: +BS. Soft. Nontender. No masses or organomegaly. Extremities: No clubbing, cyanosis, or edema. Limited neurological examination is without focal deficits. Pulses: radial=2/4, posterior tibial=2/4 Results & Data Vital Signs (Past 12 Hours) Vital Signs Temp Pulse Pulse Resp BP BP Pulse Ox 04/26/24 07:37 36.3 C L 82 18 117/79 96 04/26/24 07:36 93 H 04/26/24 04:00 90 04/26/24 04:00 04/26/24 03:59 36.5 C 81 16 155/98 H 98 04/26/24 03:54 04/26/24 03:30 122/96 04/26/24 03:28 84 04/26/24 03:00 80 16 132/78 97 04/26/24 02:03 87 18 122/79 97 04/26/24 01:33 72 19 108/78 97 04/26/24 01:30 69 04/26/24 01:03 71 15 95 04/26/24 01:00 127/92 04/26/24 01:00 127/92 04/26/24 00:57 106 H 17 96 04/26/24 00:56 114 H 131/82 04/26/24 00:36 94 H 17 131/82 96 04/26/24 00:00 97 H 23 97 04/25/24 23:26 130 H 04/25/24 23:19 36.6 C 112 H 20 173/124 H 99 O2 Del Method O2 Del Method 04/26/24 07:37 Room Air 04/26/24 07:36 04/26/24 04:00 04/26/24 04:00 Room Air 04/26/24 03:59 Room Air 04/26/24 03:54 Room Air 04/26/24 03:30 04/26/24 03:28 04/26/24 03:00 04/26/24 02:03 04/26/24 01:33 04/26/24 01:30 04/26/24 01:03 04/26/24 01:00 04/26/24 01:00 04/26/24 00:57 04/26/24 00:56 04/26/24 00:36 04/26/24 00:00 04/25/24 23:26 04/25/24 23:19 Room Air Laboratory Results Cardiac Enzymes 04/25/24 04/26/24 04/26/24 Range/Units 23:34 01:23 06:42 AST 28 (13-39) U/L Troponin I High Sens 58.9 H* 64.4 H* 53.2 H* D (0-20) pg/ml Coagulation 04/25/24 Range/Units 23:34 PT 10.5 (9.0-12.0) Seconds APTT 26 (21-31) Seconds CBC 04/25/24 04/26/24 Range/Units 23:34 06:42 WBC 10.72 6.84 (4.8-10.8) K/ul RBC 4.75 4.79 (4.70-6.10) M/uL Hgb 15.2 15.1 (14.0-18.0) g/dl Hct 42.0 42.4 (42.0-52.0) % Plt Count 230 235 (130-400) K/uL Neut # (Auto) 7.20 H 3.83 (1.40-6.50) K/uL Lymph # (Auto) 2.23 2.05 (1.20-3.40) K/uL [place] # (Auto) 1.05 H 0.75 H (0.11-0.59) K/uL Eos # (Auto) 0.13 0.14 (0.00-0.50) K/uL Baso # (Auto) 0.06 0.04 (0.00-0.20) K/uL Comprehensive Metabolic Panel 04/25/24 04/26/24 Range/Units 23:34 06:42 Sodium 137 136 (136-145) mmol/L Potassium 4.1 3.8 (3.5-5.1) mmol/L Chloride 104 102 (98-107) mmol/L Carbon Dioxide 27 28 (21-32) mmol/L BUN 33 H 27 H (6-23) mg/dl Creatinine 1.36 0.95 D (0.6-1.4) mg/dl Glucose 121 H 106 H (70-99(Fasting)) mg/dl Calcium 9.6 8.8 (8.6-10.3) mg/dl AST 28 (13-39) U/L ALT 23 (7-52) U/L Alkaline Phosphatase 57 (34-104) U/L Total Protein 7.2 (6.0-8.3) gm/dl Albumin 4.4 (3.4-5.0) gm/dl Intake and Output 04/25/24 04/26/24 04/26/24 22:59 06:59 14:59 Intake Total 59.933 / 59.933 Balance 59.933 / 59.933 Intake: IV 59.933 / 59.933 Heparin Sodium/Dextrose 25,000 59.933 / 59.933 units In 500 ml @ 1,450 UNITS/ HR 29 mls/hr IV .[id number] [facility] Rx #:[id number] Other: # Unmeasured Voids 1 Weight 86.636 kg Weight Measurement Method Built in [facility] Diagnostic Findings January 07, 2024 TTE Interpretation Summary (as per Dr. Henao): The left ventricular cavity size is normal. The LV wall thickness is borderline increased (concentric). The left ventricular wall motion is normal. The qualitative LV ejection fraction is 60-64% (normal). Mild aortic valve sclerosis is present. There is trace mitral and tricuspid insufficiency The aortic root and proximal ascending aorta are mildly enlarged. (4.3 cm/3.9 cm). Compared to prior study of January 14, 2022, there is no significant change. Telemetry: Atrial fibrillation throughout hospitalization thus far, 80s and 90s overnight, 60s and 70s this morning. (2) Hypertension Hypertension type: unspecified Qualified Code(s): I10 - Essential (primary) hypertension
[2024-04-26 11:08] LABS: ANTI-Xa, UFH(UnfractionatedHep 0.39 IU/ml (0.3-0.7)
[2024-04-26] MEDS: METOPROLOL TARTRATE 1 MG/ML VIAL IV PRN (14:18)
[2024-04-26] MEDS: WARFARIN SOD 5 MG TAB PO SCH (15:43)
[2024-04-26] MEDS: METOPROLOL SUCC 25MG EXT REL TAB PO SCH (15:45)
--- NOTE | 2024-04-26 17:01 | Hospitalist Progress Note ---
Date of Service April 26, 2024 Assessment & Plan (1) Rapid atrial fibrillation: Plan: Per admitting service notes with addendum: 68-year-old male with past medical history significant for aortic root dilatation, Lyme carditis, hypertension, bipolar depression, history of atrial fibrillation presents with rapid A-fib. Patient has history of lone episode with symptomatic atrial fibrillation in the setting of acute Lyme infection and Lyme carditis in June 02, 2014 and was s/p direct cardioversion at that time and patient states he did fine since then . Patient workouts regularly. Today after biking and running he noticed heart palpitation. And came to the ER he was found to be rapid A-fib. After IV Lopressor heart rates improved but still in A-fib. Patient denies any dizziness. No headache. No runny nose or sore throat. No cough. No fevers. No chest pain or shortness of breath. States he felt anxious. No nausea no abdominal pain. Normal bowel and bladder movements. Denies any blood in the stools ,denies any hematuria. Ambulating okay. Denies any tick bite but says not sure and last time he found that he had lyme disease after he became sick. Rapid atrial fibrillation seems asymptomatic had episode of lone A-fib in the past in 2013 in setting of Lyme carditis and was s/p cardioversion at that time. Heart rates improved after 1 dose of IV Lopressor. Will continue IV Lopressor as needed. IV heparin. Telemetry. Echo. Cardiology consult in a.m. for further recommendations. 04/26 Heart rate controlled now Still in A-fib Echocardiogram: EF 55 to 60%, borderline concentric LVH, mild tricuspid regurgitation, mild aortic root dilatation Evaluated by cardiology service Started on metoprolol succinate 12.5 mg p.o. daily Coumadin also started Continue heparin drip bridge Stop aspirin Monitor closely Mild elevation of troponin. Mostly demand ischemia from rapid A-fib. Troponins trended down Echo as above history of hypertension. Continue home lisinopril/hydrochlorothiazide. Will monitor. aortic root dilatation monitor as outpatient Bipolar depression continue home medications DVT prophylaxis IV heparin disposition Anticipate discharge to home when medically stable full code. Admission and Anticipated Discharge Date Admission Date: April 26, 2024 Subjective sFollow-up for A-fib in [place], etc. Seen resting in bed, comfortable, not in distress States he feels okay overall No chest pain, palpitations, dizziness No shortness of breath No other new symptoms Review of Systems Review of Systems: all noted and negative except for above Physical Exam Physical Exam: General- oriented x 3, not in distress, speaks in sentences with no effort or accessory muscle use Eyes- anicteric Neck- no JVD Lungs- clear breath sounds bilaterally, no rales/wheezes Heart- normal rate, Irregularly irregular; no murmurs Abdomen- normal bowel sounds, nondistended, soft, nontender Extremities- no pretibial edema, no calf tenderness Neuro- alert, oriented x 3; no gross focal neurologic deficits Skin- warm & dry Results & Data Results & Data Vital Signs (Past 12 Hours) Vital Signs Temp Pulse Pulse Resp BP BP Pulse Ox 04/26/24 15:41 36.8 C 77 19 105/70 95 04/26/24 14:39 84 04/26/24 14:36 80 118/82 04/26/24 14:18 158 H 131/94 04/26/24 11:40 36.6 C 80 18 113/75 97 04/26/24 07:37 36.3 C L 82 18 117/79 96 04/26/24 07:36 93 H O2 Del Method 04/26/24 15:41 Room Air 04/26/24 14:39 04/26/24 14:36 04/26/24 14:18 04/26/24 11:40 Room Air 04/26/24 07:37 Room Air 04/26/24 07:36 all noted and reviewed including below
--- NOTE | 2024-04-27 06:15 | Electrocardiogram Report ---
Test Reason : Blood Pressure : / mmHG Vent. Rate : 112 BPM Atrial Rate : 000 BPM P-R Int : 000 ms QRS Dur : 090 ms QT Int : 336 ms P-R-T Axes : 000 -06 071 degrees QTc Int : 458 ms Atrial fibrillation with rapid ventricular response Minimal voltage criteria for LVH, may be normal variant ( Sokolow-Da Silva ) Nonspecific ST and T wave abnormality Abnormal ECG When compared with ECG of 11-NOV-2019 16:07, Atrial fibrillation has replaced Sinus rhythm Vent. rate has increased BY 57 BPM Confirmed by Mason Grullon ([id number]) on 04/27/2024 6:14:56 AM Referred By: REFERRED SELF Confirmed By:Mason Grullon
[2024-04-27 06:54] LABS: Basophils # (auto) 0.05 K/uL (0.00-0.20); Basophils % (auto) 0.8 %; Eosinophils # (auto) 0.16 K/uL (0.00-0.50); Eosinophils % (auto) 2.4 %; Hematocrit (blood only) 45.3 % (42.0-52.0); Hemoglobin 16.3 g/dl (14.0-18.0); Immature Granulocytes # (auto) 0.03 K/uL (0.01-0.20); Immature Granulocytes % (auto) 0.5 %; Lymphocytes # (auto) 2.07 K/uL (1.20-3.40); Lymphocytes % (auto) 31.7 %; Mean Corpuscular Hemoglobin 31.5 pg (25.0-34.0); Mean Corpuscular Volume 87.6 fL (80.0-100.0); Mean Platelet Volume 9.9 fL (9.4-12.4); Monocytes # (auto) 0.78 K/uL (0.11-0.59); Monocytes % (auto) 11.9 %; Neutrophils # (auto) 3.45 K/uL (1.40-6.50); Neutrophils % (auto) 52.7 %; Platelet Count 242 K/uL (130-400); RDW Coefficient of Variation 11.8 % (11.5-14.5); RDW Standard Deviation 37.8 fL (36.4-46.3); Red Blood Count 5.17 M/uL (4.70-6.10); White Blood Count 6.54 K/ul (4.8-10.8)
[2024-04-27 07:01] LABS: ANTI-Xa, UFH(UnfractionatedHep 0.55 IU/ml (0.3-0.7); Prothrombin Time 10.8 Seconds (9.0-12.0)
[2024-04-27 07:17] LABS: Calcium 8.9 mg/dl (8.6-10.3); Potassium 4.1 mmol/L (3.5-5.1)
[2024-04-27 07:23] LABS: BUN Creatinine Ratio 29.1 (10-20); Creatinine Clr Calc Pharmacy 75.3 ml/min; Est GFR (African American) 86.7 ml/min; Est GFR (Non-African American) 74.8 ml/min
--- NOTE | 2024-04-27 09:35 | Cardiology Progress Note ---
Date of Service April 27, 2024 Assessment & Plan (1) Rapid atrial fibrillation: (2) Hypertension: (3) Aortic root dilatation: (4) Family history of ischemic heart disease: Plan Presentation on April 25, 2024 with recurrent, symptomatic, atrial fibrillation with a rapid ventricular response. [id number] Score 2 points. Telemetry with variable heart rates as noted below. RECOMMENDATIONS/PLAN: 1. Continue telemetry 2. Continue low dose beta-simone therapy with metoprolol succinate 12.5 mg/day 3. Continue heparin to Coumadin (NOAC not chosen due to chronic use of Depakote) 4. Aspirin discontinued with initiation of anticoagulation. I spent a total of 28 minutes on the date of service in preparation, delivery, and documentation of the care provided to this patient excluding any time spent in the performance of separately billed services. This visit was a split-shared visit with the substantive portion of the medical decision making performed by the supervising coremaking machine operator/billing provider. Please refer to Dr. Merlos's documentation. Admission and Anticipated Discharge Date Admission Date: April 26, 2024 Supervising Physician Co-Signing Physician Notes I have personally performed a history and physical examination on the patient. I have reviewed the advance practitioner's documentation, and I agree with, and take responsibility for the plan of care. 68-year-old male admitted with paroxysmal atrial fibrillation. Fair rate control on telemetry. CHADS2 vascular equals 2. Echocardiogram demonstrates preserved LV systolic function with normal left atrial size. No significant valvular pathology. Transient bradycardia recorded at 12:20 AM. No significant pauses on telemetry. Continue low-dose beta-simone therapy and oral anticoagulation with warfarin. DOAC avoided due to treatment with Depakote. Further treatment options discussed including transesophageal echocardiogram guided cardioversion in the a.m. 04/28/2024 versus 4 weeks of oral anticoagulation with elective external direct-current cardioversion in 4 weeks. Patient opts for the latter. Prefers discharge home with conservative management at this time. No further inpatient cardiac testing or intervention recommended. Thank you for allow me to participate in the care of your patient. Cardiology will sign off. Please call with additional concerns/questions. I spent a total of 25 minutes on the date of service in preparation, delivery, and documentation of the care provided to this patient, excluding any time spent in the performance of separately billed services. Subjective Patient seen and examined. Chart, medications, and telemetry reviewed. Two short transient episodes of nausea and diaphoresis overnight; mild pauses (less than 2.5 seconds in duration) noted on telemetry around that time. Denies chest discomfort, palpitations, shortness of breath, cough, orthopnea, PND, or peripheral edema. Telemetry: Atrial fibrillation with heart rates predominately in the 70's and 80's. Up to 2.5 second pauses noted overnight. Heart rates up to 140 bpm with a ctivity this AM, prior to metoprolol administration. Review of Systems Review of Systems: Complete Review of Systems is as stated above, negative, or noncontributory. Physical Exam Physical Exam: General: A&Ox3. NAD. HENT: Normocephalic. Atraumatic. Eyes: PER. Conjunctiva pink, sclera clear. Neck: No carotid bruits. No JVD. No HJR. Heart: Irregularly irregular at 70 bpm. No murmur. No rub. No gallop. PMI is nondisplaced. Lungs: Clear to auscultation. Abdomen: +BS. Soft. Nontender. No masses or organomegaly. Extremities: No clubbing, cyanosis, or edema. Limited neurological examination is without focal deficits. Pulses: radial=2/4, posterior tibial=2/4 Results & Data Vital Signs (Past 12 Hours) Vital Signs Temp Pulse Pulse Resp BP Pulse Ox O2 Del Method 04/27/24 07:54 108/72 04/27/24 07:07 36.6 C 80 18 96/62 L 98 Room Air 04/27/24 03:54 04/27/24 02:54 36.5 C 74 16 90/63 L 95 Room Air 04/26/24 23:54 39 L 04/26/24 23:40 36.5 C 73 18 99/65 L 94 Room Air 04/26/24 22:54 66 O2 Del Method 04/27/24 07:54 04/27/24 07:07 04/27/24 03:54 Room Air 04/27/24 02:54 04/26/24 23:54 04/26/24 23:40 04/26/24 22:54 Laboratory Results Cardiac Enzymes 04/26/24 Range/Units 12:46 Troponin I High Sens 31.7 H D (0-20) pg/ml Coagulation 04/27/24 Range/Units 06:32 PT 10.8 (9.0-12.0) Seconds CBC 04/27/24 Range/Units 06:32 WBC 6.54 (4.8-10.8) K/ul RBC 5.17 (4.70-6.10) M/uL Hgb 16.3 (14.0-18.0) g/dl Hct 45.3 (42.0-52.0) % Plt Count 242 (130-400) K/uL Neut # (Auto) 3.45 (1.40-6.50) K/uL Lymph # (Auto) 2.07 (1.20-3.40) K/uL [place] # (Auto) 0.78 H (0.11-0.59) K/uL Eos # (Auto) 0.16 (0.00-0.50) K/uL Baso # (Auto) 0.05 (0.00-0.20) K/uL Comprehensive Metabolic Panel 04/27/24 Range/Units 06:32 Sodium 135 L (136-145) mmol/L Potassium 4.1 (3.5-5.1) mmol/L Chloride 102 (98-107) mmol/L Carbon Dioxide 27 (21-32) mmol/L BUN 30 H (6-23) mg/dl Creatinine 1.03 (0.6-1.4) mg/dl Glucose 119 H (70-99(Fasting)) mg/dl Calcium 8.9 (8.6-10.3) mg/dl Intake and Output 04/26/24 04/27/24 04/27/24 22:59 06:59 14:59 Intake Total 1151.933 / 1582.699 250 / 1582.699 289.033 / 289.033 Balance 1151.933 / 1582.699 250 / 1582.699 289.033 / 289.033 Intake: IV 291.933 / 472.699 289.033 / 289.033 Heparin Sodium/Dextrose 25,000 291.933 / 472.699 289.033 / 289.033 units In 500 ml @ 1,450 UNITS/ HR 29 mls/hr IV .[id number] PENDING S[facility] TO [facility] Rx #:[id number] Oral 860 / 1110 250 / 1110 Other: # Unmeasured Voids 3 3 Weight 85.3 kg Weight Measurement Method Standing Scale Diagnostic Findings April 26, 2024 TTE Interpretation Summary ([facility] [place], Dr. Merlos): EF 55 to 60%. Borderline concentric LVH. Normal left atrial size. Mild tricuspid regurgitation. Doppler findings do not suggest pulmonary hypertension. Mildly dilated aortic root, 4.0 cm. EKG on April 27, 2024: Atrial fibrillation with a ventricular rate of 69 bpm. Voltage criteria for LVH. Nonspecific STT wave abnormality. QTc 454 ms. (2) Hypertension Hypertension type: unspecified Qualified Code(s): I10 - Essential (primary) hypertension
[2024-04-27] MEDS: ENOXAPARIN 100 MG/1ML SYR SQ SCH (09:56)
--- NOTE | 2024-04-27 16:12 | Hospitalist Progress Note ---
Date of Service April 27, 2024 Assessment & Plan (1) Rapid atrial fibrillation: Plan: Per admitting service notes with addendum: 68-year-old male with past medical history significant for aortic root dilatation, Lyme carditis, hypertension, bipolar depression, history of atrial fibrillation presents with rapid A-fib. Patient has history of lone episode with symptomatic atrial fibrillation in the setting of acute Lyme infection and Lyme carditis in June 02, 2014 and was s/p direct cardioversion at that time and patient states he did fine since then . Patient workouts regularly. Today after biking and running he noticed heart palpitation. And came to the ER he was found to be rapid A-fib. After IV Lopressor heart rates improved but still in A-fib. Patient denies any dizziness. No headache. No runny nose or sore throat. No cough. No fevers. No chest pain or shortness of breath. States he felt anxious. No nausea no abdominal pain. Normal bowel and bladder movements. Denies any blood in the stools ,denies any hematuria. Ambulating okay. Denies any tick bite but says not sure and last time he found that he had lyme disease after he became sick. Atrial fibrillation, in RVR seems asymptomatic had episode of lone A-fib in the past in 2013 in setting of Lyme carditis and was s/p cardioversion at that time. Heart rates improved after 1 dose of IV Lopressor. Will continue IV Lopressor as needed. IV heparin. Telemetry. Echo. Cardiology consult in a.m. for further recommendations. 04/26 Heart rate controlled now Still in A-fib Echocardiogram: EF 55 to 60%, borderline concentric LVH, mild tricuspid regurgitation, mild aortic root dilatation Evaluated by cardiology service Started on metoprolol succinate 12.5 mg p.o. daily Coumadin also started Continue heparin drip bridge Stop aspirin Monitor closely 04/27 Remains in A-fib, heart rate controlled, in the 70s Tolerating metoprolol succinate 12.5 mg p.o. daily Transition from heparin to Lovenox bridge Continue Coumadin Will need to be established with Coumadin clinic Patient comfortable with administration of Lovenox at home Instructions being given by RN Mild elevation of troponin. Mostly demand ischemia from rapid A-fib. Troponins trended down Echo as above history of hypertension. Continue home lisinopril/hydrochlorothiazide. Will monitor. aortic root dilatation monitor as outpatient Bipolar depression continue home medications DVT prophylaxis lovenox bridge + coumadin Disposition Anticipate discharge to home tomorrow full code. Admission and Anticipated Discharge Date Admission Date: April 26, 2024 Subjective Follow-up for A-fib with RVR, etc. Seen resting in bed, comfortable, not in distress States he feels better than yesterday No recurrence of palpitations, dizziness, chest pain No bleeding No other new symptoms Review of Systems Review of Systems: all noted and negative except for above Physical Exam Physical Exam: General- oriented x 3, not in distress, speaks in sentences with no effort or accessory muscle use Eyes- anicteric Neck- no JVD Lungs- clear breath sounds bilaterally, no rales/wheezes Heart- normal rate,Irregularly irregular rhythm; no murmurs Abdomen- normal bowel sounds, nondistended, soft, nontender Extremities- no pretibial edema, no calf tenderness Neuro- alert, oriented x 3; no gross focal neurologic deficits Skin- warm & dry Results & Data Results & Data Vital Signs (Past 12 Hours) Vital Signs Temp Pulse Resp BP Pulse Ox O2 Del Method 04/27/24 15:23 36.5 C 71 18 99/65 L 97 Room Air 04/27/24 11:18 36.3 C L 81 18 113/66 95 Room Air 04/27/24 07:54 108/72 04/27/24 07:07 36.6 C 80 18 96/62 L 98 Room Air all noted and reviewed including below
--- NOTE | 2024-04-27 22:49 | Electrocardiogram Report ---
Test Reason : Blood Pressure : / mmHG Vent. Rate : 090 BPM Atrial Rate : 085 BPM P-R Int : 000 ms QRS Dur : 088 ms QT Int : 372 ms P-R-T Axes : 000 004 -14 degrees QTc Int : 455 ms Atrial fibrillation Moderate voltage criteria for LVH, may be normal variant Nonspecific T wave abnormality Abnormal ECG When compared with ECG of 25-APR-2024 23:25, No significant change Confirmed by Mason Grullon ([id number]) on 04/27/2024 10:49:12 PM Referred By: REFERRED SELF Confirmed By:Mason Grullon
--- NOTE | 2024-04-28 06:46 | Electrocardiogram Report ---
Test Reason : Blood Pressure : / mmHG Vent. Rate : 069 BPM Atrial Rate : 083 BPM P-R Int : 000 ms QRS Dur : 100 ms QT Int : 424 ms P-R-T Axes : 000 003 025 degrees QTc Int : 454 ms Atrial fibrillation Moderate voltage criteria for LVH, may be normal variant Nonspecific ST and T wave abnormality Abnormal ECG When compared with ECG of 26-APR-2024 04:03, No significant change was found Confirmed by Mason Grullon ([id number]) on 04/28/2024 6:46:10 AM Referred By: REFERRED SELF Confirmed By:Mason Grullon
[2024-04-28 07:11] LABS: Basophils # (auto) 0.04 K/uL (0.00-0.20); Basophils % (auto) 0.7 %; Eosinophils # (auto) 0.16 K/uL (0.00-0.50); Eosinophils % (auto) 2.6 %; Hematocrit (blood only) 43.8 % (42.0-52.0); Hemoglobin 15.7 g/dl (14.0-18.0); Immature Granulocytes # (auto) 0.02 K/uL (0.01-0.20); Immature Granulocytes % (auto) 0.3 %; Lymphocytes # (auto) 2.23 K/uL (1.20-3.40); Lymphocytes % (auto) 36.6 %; Mean Corpuscular Hemoglobin 31.3 pg (25.0-34.0); Mean Corpuscular Hgb Conc 35.8 g/dL (32.0-36.0); Mean Corpuscular Volume 87.3 fL (80.0-100.0); Mean Platelet Volume 10.1 fL (9.4-12.4); Monocytes # (auto) 0.71 K/uL (0.11-0.59); Monocytes % (auto) 11.7 %; Neutrophils # (auto) 2.93 K/uL (1.40-6.50); Neutrophils % (auto) 48.1 %; Platelet Count 241 K/uL (130-400); RDW Coefficient of Variation 11.9 % (11.5-14.5); RDW Standard Deviation 37.8 fL (36.4-46.3); Red Blood Count 5.02 M/uL (4.70-6.10); White Blood Count 6.09 K/ul (4.8-10.8)
[2024-04-28 07:21] LABS: BUN Creatinine Ratio 27.4 (10-20); Calcium 8.7 mg/dl (8.6-10.3); Creatinine Clr Calc Pharmacy 73.1 ml/min; Est GFR (African American) 83.8 ml/min; Est GFR (Non-African American) 72.3 ml/min; Potassium 4.1 mmol/L (3.5-5.1)
[2024-04-28 07:40] LABS: INR 1.1 (0.9-1.1)
--- NOTE | 2024-04-28 13:43 | Discharge Summary ---
Date of Service April 28, 2024 Admission HPI Per Admitting Provider 68-year-old male with past medical history significant for aortic root dilatation, Lyme carditis, hypertension, bipolar depression, history of atrial fibrillation presents with rapid A-fib. Patient has history of lone episode with symptomatic atrial fibrillation in the setting of acute Lyme infection and Lyme carditis in June 02, 2014 and was s/p direct cardioversion at that time and patient states he did fine since then . Patient workouts regularly. Today after biking and running he noticed heart palpitation. And came to the ER he was found to be rapid A-fib. After IV Lopressor heart rates improved but still in A-fib. Patient denies any dizziness. No headache. No runny nose or sore throat. No cough. No fevers. No chest pain or shortness of breath. States he felt anxious. No nausea no abdominal pain. Normal bowel and bladder movements. Denies any blood in the stools ,denies any hematuria. Ambulating okay. Denies any tick bite but says not sure and last time he found that he had lyme disease after he became sick. Past medical history. As mentioned above. Past surgical history. Colonoscopy. Social history. Former smoker. Quit alcohol 1987. No drug use. family history. Mother had TX at age of 70. Father had hypertension. Admission Exam Per Admitting Provider General- Not in distress. Head- atraumatic Eyes- PERRL. ENT- oropharynx clear Neck- supple, no JVD. Lungs- clear to auscultation no wheezing or crackles. Heart- irregular rhythm; no murmur, no gallop. Abdomen- normal bowel sounds, soft, nontender, no distension. Extremities- no pretibial edema, no erythema seen Neuro- alert, oriented PERRL no facial palsy; no dysarthria; moves extremities. Principal Diagnosis AFib with RVR Discharge Exam Constitutional + well hydrated; no acute distress Eyes PERRL, conjunctivae normal, anicteric sclerae ENMT external ear and nose normal, oropharynx normal Respiratory normal respiratory effort, lungs clear to auscultation Cardiovascular Irregularly irregular, rate controlled Gastrointestinal (Abdomen) normal bowel sounds, soft, nontender, no hepatosplenomegaly Musculoskeletal no cyanosis or clubbing, extremities motor strength 5/5 No pedal edema Neurologic PERRL, EOMI, accommodation nl, no face palsy, no dysarthria Psychiatric A+Ox3, euthymic affect Discharge Data Allergies Allergy/AdvReac Type Severity Reaction Status Date / Time No Known Allergies Allergy Verified 04/26/24 00:12 Consultations 04/26/24 02:22 ED Decision to Admit Stat 04/26/24 08:00 Consult Cardiology Routine Hospital Course (1) Rapid atrial fibrillation: 68-year-old male with past medical history significant for aortic root dilatation, Lyme carditis, hypertension, bipolar depression, history of atrial fibrillation presents with rapid A-fib. Patient has history of lone episode with symptomatic atrial fibrillation in the setting of acute Lyme infection and Lyme carditis in June 02, 2014 and was s/p direct cardioversion at that time and patient states he did fine since then . On day of admission, he developed palpitation after biking In the ER he was found to be rapid A-fib. Atrial fibrillation, in RVR Had episode of lone A-fib in the past in 2013 in setting of Lyme carditis and was s/p cardioversion at that time. Lyme screen is negative Echo showed EF of 55-60%, mild TR, mild aortic root dilatation, borderline conc LVH Patient was evaluated by Cardiology Rate controlled with metoprolol succinate 12.5mg daily Started Lovenox- warfarin bridge inpatient Nurse coordinator Grover initiated Anticoagulation clinic follow up. They will contact patient Provided education regarding lovenox- warfarin bridge Follow up Cardiology outpatient for possible cardioversion in 4 weeks Mild elevation of troponin. Mostly demand ischemia from rapid A-fib. Troponin trended down History of hypertension. Continue home lisinopril/hydrochlorothiazide. Aortic root dilatation Monitor as outpatient Bipolar depression Continue home medications Total Time Total Time Spent Total Time Spent (In Minutes): 35 Total Time Includes: Examination of the Patient, Discharge Planning and Medication Reconciliation Discharge Plan Discharge Items Patient Disposition: Home - Self-Care Reason For Visit: RAPID A FIB Discharge Diagnosis: AFib with rapid ventricular rate Activity: Resume your previous activity Non-emergency contact: Primary Care Provider and Cadet Deck Call non-emergency contact if: you have any medication questions and your symptoms worsen Follow-up/Referrals: Anticoagulation Clinic ([facility]) [Other] ([facility], also known as the [facility], will contact you with further guidance/instruction for managing your INR and coumadin dosing. ) Ashwin Wooten [Physician Loan Processing Supervisor] - (The Cardiology office will contact you for a follow up appointment.) Sunitha Carvalho MD [Outside Practitioners] - (Date & Time 05/03/2024 10:20 AM Provider Sunitha Carvalho MD Department General Internal Medicine [facility] ) Diet: Heart Healthy Addtl Attending Provider Instructions: Mr Wen You came to the hospital complaining of palpitation You were evaluated and managed for Atrial fibrillation with Rapid ventricular rate You were started on metoprolol You were also started on Warfarin and will need to Follow up with Warfarin/Anticoagulation clinic for monitoring and management. Since warfarin takes sometime for full effect, you are being discharged on lovenox injection for next 4-5 days or until advised otherwise by Anticoagulation clinic. Anticoagulation clinic will adjust dose of your warfarin as needed to maintain goal INR of 2 - 3 as we discussed. Please STOP TAKING ASPIRIN now that you are on warfarin Please ensure follow up with your Primary Doctor and Cardiology It was a pleasure taking care of you. Pending Studies at Discharge: No Stand-Alone Forms: My [facility] [employer], Smoking Cessation Medications and DC Order Prescriptions: New warfarin 5 mg Tablet 5 mg PO DAILY@1600 Qty: 30 0RF metoprolol succinate 25 mg Tablet Extended Release 24 Hr 12.5 mg PO QAM Qty: 30 0RF enoxaparin 100 mg/mL Syringe 90 mg subcut Q12 5 Days Qty: 9 0RF Continued bupropion HCl 100 mg tablet sustained-release 12 hr 100 mg PO QAM divalproex 500 mg tablet extended release 24 hr 500 mg PO QAM triamcinolone acetonide 0.5 % cream 1 applic TOPICAL DIRECTED PRN (Reason: Skin Irritation) lisinopril-hydrochlorothiazide 20-12.5 mg tablet 1 tab PO QAM ketoconazole 2 % cream 1 applic TOPICAL BID PRN (Reason: Skin Irritation) [id number] 333-133-5 mg Tablet 1 tab PO QAM Discontinued aspirin 81 mg Tablet,Delayed Release (Dr/Ec) 81 mg PO QAM Discharge Orders: Discharge Order (Routine); Ordered 04/28/24 Ordered By: Danyelle Shea Admission Data Admit Date/Time: 04/26/24 02:36 Attending Provider: Danyelle Shea I. Admit Provider: Palepu,Rashad P. Primary Care Provider: Abdullahi Chand Other Providers: Rashad Amaya; Arnel Merlos; Santiago Carvajal Other Interventions: Discharge Summary Assessment (RN) Last Done: 04/28/24 13:47
--- NOTE | 2024-04-29 07:32 | Electrocardiogram Report ---
Test Reason : Blood Pressure : / mmHG Vent. Rate : 078 BPM Atrial Rate : 120 BPM P-R Int : 000 ms QRS Dur : 098 ms QT Int : 418 ms P-R-T Axes : 000 004 051 degrees QTc Int : 476 ms Atrial fibrillation Voltage criteria for left ventricular hypertrophy Nonspecific T wave abnormality Prolonged QT Abnormal ECG When compared with ECG of 27-APR-2024 05:24, No significant change was found Confirmed by Mason Grullon ([id number]) on 04/29/2024 7:32:22 AM Referred By: REFERRED SELF Confirmed By:Mason Grullon
== END 2024-04-28 14:16 | disposition home or self-care (01) | DRG 309 ==
LOC: ED 23:14 → 2S 04-26 02:36 → SUATTDRO 04-26 02:36 → 2S 04-26 03:42